=== PATIENT | female | born 1940 | race Caucasian/White ===

== ENCOUNTER → 2017-07-06 | Outpatient (CLI) | payer MEDICARE ==
--- NOTE | 2017-07-06 14:52 | BD ---
EXAMINATION TYPE: MG DEXA axial skeleton. DATE OF EXAM: 07/06/2017 COMPARISON: NONE CLINICAL HISTORY: Postmenopausal female. Height: 62 IN Weight: 182 LBS FRAX RISK QUESTIONS: Alcohol (3 or more units per day): NO Family History (Parent hip fracture): NO Glucocorticoids (More than 3mos): NO (Ex: prednisone, prednisolone, methylprednisolone, dexamethasone, and hydrocortisone). History of Fracture in Adulthood: NO Secondary Osteoporosis: 1. Type 1 Diabetes: NO 2. Hyperthyroidism: NO 3. Menopause before 45: NO 4. Malnutrition: NO 5. Chronic liver disease: NO Rheumatoid Arthritis: NO Current Tobacco Use: NO RISK FACTORS HISTORY OF: Active: YES Diet low in dairy products/other sources of calcium: YES Postmenopausal woman: AGE 53 MEDICATIONS: Thyroid Medications: YES Which medication: Levothyroxine How Lon+ YEARS Additional Medications: CALCIUM, VIT D, LEVOTHYROXINE, PLAVIX, LOSARTAN EXAM MEASUREMENTS: Bone mineral densitometry was performed using the [employer] System. Bone mineral density as measured about the Lumbar spine is: ----- L1-L4(G/cm2): 1.173 T Score Values are as follows: ----- L2: 0.6 ----- L3: 0.6 ----- L4: 0.4 ----- L1-L4: -0.1 Bone mineral density has: Increased 3.6% since study of: 02/14/2015 Bone mineral density about the R hip (g/cm2): 0.768 Bone mineral density about the L hip (g/cm2): 0.815 T Score values are as follows: -----R Neck: -1.9 -----L Neck: -1.6 -----R Total: -1.3 -----L Total: -0.6 Bone mineral density has: Decreased -2.0% since study of: 02/14/2015 IMPRESSION: Osteopenia (T Score between -2.5 and -1) as noted by T score values) both hips. There is slightly increased risk of fracture and the patient may be considered for treatment. Re-Screen 2-5 years. NOTE: T-SCORE=SD OF THE YOUNG ADULT MEAN.
--- NOTE | 2017-07-08 06:51 | MM ---
Reason for exam: screening (asymptomatic). Last mammogram was performed 2 years and 5 months ago. History: Patient is postmenopausal. Physical Findings: A clinical breast exam by your physician is recommended on an annual basis and results should be correlated with mammographic findings. MG 3D Screening Mammo W/Cad Bilateral CC and MLO view(s) were taken. Prior study comparison: February 14, 2015, bilateral MG screening mammo w CAD. January 11, 2013, bilateral digital screening mammo w/CAD. There are scattered fibroglandular densities. There is no discrete abnormality. ASSESSMENT: Negative, BI-RAD 1 RECOMMENDATION: Routine screening mammogram of both breasts in 1 year.
== END | disposition home or self-care (01) ==
LOC: RADMAMWWP 13:49
PROVIDERS: ATTEND Internal Medicine
DX: Z12.31 Encounter for screening mammogram for malignant neoplasm of breast (principal); M85.852 Other specified disorders of bone density and structure, left thigh; M85.851 Other specified disorders of bone density and structure, right thigh
CPT/HCPCS: 77080; 77063; G0202

== ENCOUNTER → 2019-07-07 | Outpatient (CLI) | payer MEDICARE ==
--- NOTE | 2019-07-08 14:12 | MM ---
Reason for exam: screening (asymptomatic). Last mammogram was performed 2 years ago. History: Patient is postmenopausal. Physical Findings: A clinical breast exam by your physician is recommended on an annual basis and results should be correlated with mammographic findings. MG 3D Screening Mammo W/Cad Bilateral CC and MLO view(s) were taken. Prior study comparison: July 06, 2017, bilateral MG 3d screening mammo w/cad. February 14, 2015, bilateral MG screening mammo w CAD. The breast tissue is heterogeneously dense. This may lower the sensitivity of mammography. No suspicious abnormality. No significant changes when compared with prior studies. ASSESSMENT: Negative, BI-RAD 1 RECOMMENDATION: Routine screening mammogram of both breasts in 1 year.
== END | disposition home or self-care (01) ==
LOC: RADMAMWWP 13:39
PROVIDERS: ATTEND Internal Medicine
DX: Z12.31 Encounter for screening mammogram for malignant neoplasm of breast (principal)
CPT/HCPCS: 77063; 77067

== ENCOUNTER → 2019-07-07 | Outpatient (CLI) | payer MEDICARE ==
--- NOTE | 2019-07-08 09:29 | BD ---
EXAMINATION TYPE: Axial Bone Density DATE OF EXAM: 07/07/2019 COMPARISON: 07.06.2017 CLINICAL HISTORY: Z 78.0 Height: 62 Weight: 174.3 FRAX RISK QUESTIONS: Alcohol (3 or more units per day): no Family History (Parent hip fracture): no Glucocorticoids (More than 3mos): no (Ex: prednisone, prednisolone, methylprednisolone, dexamethasone, and hydrocortisone). History of Fracture in Adulthood: no Secondary Osteoporosis: 1. Type 1 Diabetes: no 2. Hyperthyroidism: no 3. Menopause before 45: no 4. Malnutrition: no 5. Chronic liver disease: no Rheumatoid Arthritis: no Current Tobacco Use: no RISK FACTORS HISTORY OF: Surgery to Spine/Hip(right/left)/Wrist (right/left): no Family History of Osteoporosis: no Active: yes Diet low in dairy products/other sources of calcium: yes Postmenopausal woman: age 50 Lost more than 2 inches in height since high school: no Medications: blood thinner, blood pressure Thyroid Medications: thyroid How Lon years Additional History: EXAM MEASUREMENTS: Bone mineral densitometry was performed using the [employer] System. Bone mineral density as measured about the Lumbar spine is: ----- L1-L4(G/cm2): 1.269 T Score Values are as follows: ----- L2: 0.9 ----- L3: 1.3 ----- L4: 1.3 ----- L1-L4: 0.7 Bone mineral density has: increased 6.4 % since study of: 07.06.2017 Bone mineral density about the R hip (g/cm2): 0.816 Bone mineral density about the L hip (g/cm2): 0.812 T Score values are as follows: -----R Neck: -1.6 -----L Neck: -1.6 -----R Total: -1.1 -----L Total: -0.8 Bone mineral density has: decreased -0.1 % since study of: 07.06.2017 IMPRESSION: Osteopenia (T Score between -2.5 and -1). There is slightly increased risk of fracture and the patient may be considered for treatment. Re-Screen 2-5 years. NOTE: T-SCORE=SD OF THE YOUNG ADULT MEAN.
== END | disposition home or self-care (01) ==
LOC: RADBDWWP 13:42
PROVIDERS: ATTEND Internal Medicine
DX: M85.80 Other specified disorders of bone density and structure, unspecified site (principal)
CPT/HCPCS: 77080

== ENCOUNTER 2021-10-21 10:45 | Inpatient (IN) | payer MEDICARE ==
[2021-10-21] MEDS ORDERED: SODIUM CHLORIDE 0.9% 1,000 ML IV STA (11:09)
--- NOTE | 2021-10-21 11:12 | ED ---
General Adult HPI - General Chief complaint: Weakness Stated complaint: rt hand weakness Time Seen by Provider: 10/21/21 10:59 Source: patient, family, RN notes reviewed Mode of arrival: wheelchair Limitations: no limitations - History of Present Illness Initial comments: Patient is a pleasant 80-year-old female presenting to the emergency department with concern for small stroke. Patient does have history of similar symptoms previously. Patient was symptom-free when she went to bed at 11 PM. Patient woke at 4 AM with complete aphasia. This lasted approximately 2 hours then resolved. Patient states at 10:00 this morning, just over 1 hour ago she started with right arm weakness. Arm weakness has improved however not returning back to baseline. Speech remains normal at this time. Patient does not feel confused. - Related Data Home Medications Medication Instructions Recorded Confirmed Ascorbic Acid [Vitamin C] 1,000 mg PO HS 10/21/21 10/21/21 Aspirin EC [Ecotrin Low Dose] 81 mg PO HS 10/21/21 10/21/21 Ncbwqah-Orxl-Rzqa [id number] 1 tab PO Q4HR PRN 10/21/21 10/21/21 [Excedrin] Calcium/Magnesium/Zinc 1 tab PO HS 10/21/21 10/21/21 [Zbeygko-Snenwtzzu-Ryta Tablet] Candesartan Cilexetil 8 mg PO DAILY 10/21/21 10/21/21 Cholecalciferol [Vitamin D3 (25 25 mcg PO HS 10/21/21 10/21/21 Mcg = 1000 Iu)] Clopidogrel [Plavix] 75 mg PO HS 10/21/21 10/21/21 Levothyroxine Sodium [Synthroid] 50 mcg PO DAILY 10/21/21 10/21/21 Multivitamins, Thera [Multivitamin 1 tab PO HS 10/21/21 10/21/21 (formulary)] [place]-3 Fatty Acids/Fish Oil [Fish 1 cap PO HS 10/21/21 10/21/21 Oil 1,000 mg Softgel] Allergies Allergy/AdvReac Type Severity Reaction Status Date / Time No Known Allergies Allergy Verified 10/21/21 11:43 Review of Systems ROS Statement: Those systems with pertinent positive or pertinent negative responses have been documented in the HPI. ROS Other: All systems not noted in ROS Statement are negative. Constitutional: Denies: fever Eyes: Denies: eye pain ENT: Denies: ear pain Respiratory: Denies: cough Cardiovascular: Denies: chest pain Endocrine: Denies: fatigue Gastrointestinal: Denies: abdominal pain Genitourinary: Denies: dysuria Musculoskeletal: Denies: back pain Skin: Denies: rash Neurological: Reports: as per HPI, weakness. Denies: headache, confusion Past Medical History Past Medical History: CVA/TIA History of Any Multi-Drug Resistant Organisms: None Reported Additional Past Surgical History / Comment(s): left kidney donor Past Psychological History: No Psychological Hx Reported Smoking Status: Never smoker Past Alcohol Use History: None Reported Past Drug Use History: None Reported General Exam Limitations: no limitations General appearance: alert, in no apparent distress Head exam: Present: normocephalic Eye exam: Present: normal appearance, PERRL, EOMI. Absent: nystagmus ENT exam: Present: normal oropharynx Neck exam: Present: normal inspection Respiratory exam: Present: normal lung sounds bilaterally Cardiovascular Exam: Present: regular rate, normal rhythm GI/Abdominal exam: Present: soft. Absent: tenderness Extremities exam: Present: normal inspection, full ROM. Absent: tenderness Neurological exam: Present: alert, oriented X3, CN II-XII intact Expanded Neurological exam: Present: protecting the airway Patient oriented to: Present: person, place, time Speech: Present: fluid speech Cranial nerves: EOM's Intact: Normal, Facial Sensation: Normal Sensory exam: Upper Extremity Light Touch: Normal, Lower Extremity Light Touch: Normal Motor strength exam: RUE: 4, LUE: 5, RLE: 5, LLE: 5 Eye Response: (4) open spontaneously Motor Response: (6) obeys commands Verbal Response: (5) oriented Psychiatric exam: Present: normal affect, normal mood Skin exam: Present: normal color Course Vital Signs 10/21/21 10/21/21 10:48 11:15 Temperature 97.9 F 97.9 F Pulse Rate 77 80 Respiratory 18 18 Rate Blood Pressure 181/98 151/86 O2 Sat by Pulse 96 96 Oximetry - Reevaluation(s) Reevaluation #1: 10/21/21 11:22 Case was discussed with Dr. Jiménez who agrees patient is not a TPA candidate secondary to low stroke scale. It is felt that the risks outweigh the benefits. EKG Findings - EKG Comments: EKG Findings:: Normal sinus rhythm with rate of 84. DE 174. QRS 102. QT 360. QTC 425. Normal axis. Normal QRS. No acute ST change. Motion artifact is present. Medical Decision Making - Medical Decision Making Patient reevaluated and unchanged. Patient updated on results and plan. Case was discussed with Dr. rosemary carlos, who will admit covering Dr. Salter. Neurology will be placed on consult. - Lab Data Result diagrams: 10/21/21 11:10/21/21 11: Lab Results 10/21/21 10/21/21 10/21/21 Range/Units 11:29 11: 11:29 WBC 7.8 (3.8-10.6) k/uL RBC 4.13 (3.80-5.40) m/uL Hgb 12.8 (11.4-16.0) gm/dL Hct 39.6 (34.0-46.0) % MCV 95.7 (80.0-100.0) fL MCH 31.0 (25.0-35.0) pg MCHC 32.3 (31.0-37.0) g/dL RDW 12.8 (11.5-15.5) % Plt Count 231 (150-450) k/uL MPV 8.1 Neutrophils % 71 % Lymphocytes % 17 % Monocytes % 7 % Eosinophils % 3 % Basophils % 1 % Neutrophils # 5.5 (1.3-7.7) k/uL Lymphocytes # 1.3 (1.0-4.8) k/uL Monocytes # 0.5 (0-1.0) k/uL Eosinophils # 0.2 (0-0.7) k/uL Basophils # 0.1 (0-0.2) k/uL Sodium 137 (137-145) mmol/L Potassium 4.2 (3.5-5.1) mmol/L Chloride 107 (98-107) mmol/L Carbon Dioxide 23 (22-30) mmol/L Anion Gap 7 mmol/L BUN 20 H (7-17) mg/dL Creatinine 0.94 (0.52-1.04) mg/dL Est GFR (CKD-EPI)AfAm 66 (>60 ml/min/1.73 sqM) Est GFR (CKD-EPI)NonAf 58 (>60 ml/min/1.73 sqM) Glucose 100 H (74-99) mg/dL Calcium 9.7 (8.4-10.2) mg/dL Total Bilirubin 0.3 (0.2-1.3) mg/dL AST 22 (14-36) U/L ALT 12 (4-34) U/L Alkaline Phosphatase 67 (38-126) U/L Troponin I <0.012 (0.000-0.034) ng/mL Total Protein 7.0 (6.3-8.2) g/dL Albumin 3.7 (3.5-5.0) g/dL - Radiology Data Radiology results: report reviewed (Computed tomography scan of brain shows atrophy without acute process. CT angiogram reveals no significant abnormality.), image reviewed (Chest x-ray shows cardiomegaly.) Disposition Clinical Impression: CVA (cerebral vascular accident) Disposition: ADMITTED IP TO THIS HOSP Is patient prescribed a controlled substance at d/c from ED?: No Referrals: Raudel Marrero MD [Primary Care Provider] - 1-2 days Decision Time: 12:34
--- NOTE | 2021-10-21 11:33 | CT ---
EXAMINATION TYPE: CT brain wo con for TPA DATE OF EXAM: 10/21/2021 COMPARISON: None HISTORY: Right hand weakness, slurred speech. CT DLP: 1075.[address] of the brain was performed. The ventricles, basal cisterns and sulci overlying the cerebral convexities demonstrate moderate enla rgement. There is no evidence for intracranial hemorrhage or sulcal effacement. There is decreased attenuation about the periventricular white matter and deep white matter of both c erebral hemispheres, compatible with chronic small vessel ischemia. Differential diagnosis does inclu de demyelination. No mass effects are seen.No midline shift. Osseous calvarium is intact. If symptoms persist consider MRI. IMPRESSION: 1. Age related atrophic and chronic small vessel ischemic change without acute intracranial process s een at this time.
[2021-10-21 11:42] LABS: Basophils # (A) 0.1 k/uL (0-0.2); Basophils % (A) 1 %; Eosinophils # (A) 0.2 k/uL (0-0.7); Eosinophils % (A) 3 %; HCT 39.6 % (34.0-46.0); HGB 12.8 gm/dL (11.4-16.0); Lymphocytes # (A) 1.3 k/uL (1.0-4.8); Lymphocytes % (A) 17 %; MCHC 32.3 g/dL (31.0-37.0); MCV 95.7 fL (80.0-100.0); Mean Platelet Volume 8.1; Monocytes # (A) 0.5 k/uL (0-1.0); Monocytes % (A) 7 %; Neutrophils # (A) 5.5 k/uL (1.3-7.7); Neutrophils % (A) 71 %; Platelet Count 231 k/uL (150-450); RBC 4.13 m/uL (3.80-5.40); RDW 12.8 % (11.5-15.5); WBC 7.8 k/uL (3.8-10.6)
--- NOTE | 2021-10-21 11:49 | CT ---
EXAMINATION TYPE: CT angio head neck DATE OF EXAM: 10/21/2021 COMPARISON: None HISTORY: Right hand weakness, slurred speech. CONTRAST: Performed with IV Contrast, patient injected with 65 mL of Isovue 370. Combination Contrast CTA cervical carotids and [place] CTA cervical carotids with 3-D recons truction Contrast CTA of the cervical carotids was performed 3-D reconstruction imaging obtained at a separate workstation. Right carotid system: Mild plaque is seen of the right common carotid artery. There is mild plaque a lso noted at the carotid bulb and proximal ICA. No significant diameter reduction. ECA is patent. Right vertebral artery appears unremarkable. Left carotid system: Mild plaque is seen of the left common carotid artery. There is mild plaque als o noted at the carotid bulb and proximal ICA. No significant diameter reduction. ECA is patent. Lef t vertebral artery appears unremarkable. IMPRESSION: 1. No significant diameter reduction to account for the patient's symptoms. CTA [place] with 3-D reconstruction Contrast CTA of the [place] was performed 3-D reconstruction imaging obtained at a separate workstation. Vertebrobasilar system as well as intracranial portions of the internal carotid arteries and their ma [place] tributaries are patent. I do not see evidence for sizable aneurysm or vascular malformation. Pl ease note MRI provides greater sensitivity and specificity. Visualized brain appears grossly unremar kable. IMPRESSION: 1. No significant abnormality. NASCET criteria was used in interpretation of this exam?
--- NOTE | 2021-10-21 11:54 | XR ---
EXAMINATION TYPE: XR chest 2V DATE OF EXAM: 10/21/2021 COMPARISON: NONE HISTORY: Shortness of breath TECHNIQUE: Frontal and lateral views of the chest are obtained. FINDINGS: Scattered senescent parenchymal changes noted. Hyperinflation compatible with COPD. No evidence for infiltrate. No evidence for atelectasis. There is cardiomegaly without evidence for overt failure at this time. Mediastinal structures are stable and grossly unremarkable. No evidence for hilar prominence. Degenerative changes dorsal spine. IMPRESSION: 1. There is cardiomegaly without evidence for overt failure at this time.
[2021-10-21 11:57] LABS: Albumin 3.7 g/dL (3.5-5.0); Calcium 9.7 mg/dL (8.4-10.2); Potassium 4.2 mmol/L (3.5-5.1); Total Bilirubin 0.3 mg/dL (0.2-1.3)
[2021-10-21 12:09] LABS: INR 0.9 (<1.2); Prothrombin Time 9.9 sec (9.0-12.0)
[2021-10-21] MEDS ORDERED: ASPIRIN 325 MG TAB PO STA (12:34)
[2021-10-21 12:42] LABS: Partial Thromboplastin Time 20.4 sec (22.0-30.0)
[2021-10-21] MEDS: SODIUM CHLORIDE 0.9% 1,000 ML IV SCH ×2 (12:45→17:54)
--- NOTE | 2021-10-21 16:06 | P.HPIM ---
<Don Brady - Last Filed: 10/21/21 17:48> History of Present Illness H&P Date: 10/21/21 History of Presenting Illness: Patient is a very pleasant 80-year-old female with a past medical history of hypertension, hyperlipidemia, previous TIAs on Plavix and aspirin, and hypothyroidism. She presented to the emergency department with a chief complaint of aphasia and right arm weakness. Patient reports she went to bed shortly after 11 PM last night and awoke at 4 AM with complete aphasia. She reports calling her son and stating this lasted approximately 2 hours before completely resolving. Patient states couple hours later she began to feel right arm weakness and numbness so she came to the emergency department. In the emergency department patient underwent full evaluation. CBC, CMP and troponin were all unremarkable. Covid PCR was negative. CT brain without contrast negative for acute intercranial process revealing age-related atrophic and chronic small vessel ischemic changes. CTA head and neck reported negative for significant abnormalities. EKG showing normal sinus rhythm at 84 bpm. Patient admitted under our services with consultation to neurology. Initial NIH score of 1. Patient reports complete resolution of aphasia and continues to have numbness/weakness in her right index finger and right thumb only. She denies having any headache, lightheadedness, dizziness, chest pain, palpitations, shortness of breath, dyspnea with exertion, recent illnesses, or fevers. Review of systems: Pertinent positives and negatives as discussed in HPI, a complete review of systems was performed and all other systems are negative. Physical exam: Vital signs reviewed and stable. General: Nontoxic, no distress and appears stated age. Derm: Skin warm and dry, normal coloration for ethnicity. Head: Atraumatic, normocephalic and symmetric. Eyes: EOMs intact, no lid lag, and anicteric sclera Mouth: no lip lesions, mucus membranes moist Cardiovascular: regular rate and rhythm with normal S1S2, no murmur, positive posterior tibial pulses bilaterally, and cap refill < 2 seconds. Lungs: Respirations even, regular, and unlabored on room air. Lungs CTA bilaterally, no rhonchi, no rales, no wheezing, and no accessory muscle usage. Abdominal: soft, nontender to palpation, no guarding, no appreciable organomegaly Ext: ROM intact. No gross muscle atrophy, 1+ pitting bilateral lower extremity edema, no contractures Neuro: Speech clear, face symmetrical and CN II-XII grossly intact. Decreased sensation right index finger and right thumb. Movement intact. Strength equal. Psych: Alert and oriented to person, place, time, and situation. Appropriate and pleasant affect. Assessment and Plan of Care: TIA Aphasia Right upper extremity weakness Initial NIH score of 1 Neuro checks every 4 hours Echocardiogram to be completed MRI head and neck to be completed Neurology consult PT/OT consult Telemetry monitoring Continuation of dual antiplatelet therapy with aspirin and Plavix Lipid profile with a.m. labs Hypertension Monitor vital signs and continue daily medication regimen with losartan. Hypothyroidism We will obtain a TSH with free T4 and continue daily medication regimen with levothyroxine The patient is admitted with an anticipated greater than 2 midnight stay for evaluation of TIA. Surrogate decision-maker: In the event patient is unable to make her own decisions, she requests that her son's make her decisions. CODE STATUS: Full code DVT prophylaxis: Lovenox Discussed with: Patient, RN, and patient's son Anticipated discharge date: 1-[address]: Home A total of 45 minutes was spent on the care of this complex patient more than 50% of the time was spent in counseling and care coordination. Past Medical History Past Medical History: CVA/TIA, GERD/Reflux, Hypertension, Pneumonia, Syncope, Thyroid Disorder Additional Past Medical History / Comment(s): TIA, bronchitis, seasonal allergies, hypothyroid, back pain History of Any Multi-Drug Resistant Organisms: None Reported Additional Past Surgical History / Comment(s): left kidney donor, FAHAD, colonoscopy, bilateral cataract removals Past Anesthesia/Blood Transfusion Reactions: No Reported Reaction, Motion Sickness Smoking Status: Never smoker - Past Family History Father Additional Family Medical History / Comment(s): "heart issues" Mother Family Medical History: Respiratory Disorder Additional Family Medical History / Comment(s): Upper respiratory disorder. Medications and Allergies Home Medications Medication Instructions Recorded Confirmed Type Ascorbic Acid [Vitamin C] 1,000 mg PO HS 10/21/21 10/21/21 History Aspirin EC [Ecotrin Low Dose] 81 mg PO HS 10/21/21 10/21/21 History Oipfaiu-Cjhr-Zqiz [id number] 1 tab PO Q4HR PRN 10/21/21 10/21/21 History [Excedrin] Calcium/Magnesium/Zinc 1 tab PO HS 10/21/21 10/21/21 History [Sglduvt-Empjmoczv-Wgbh Tablet] Candesartan Cilexetil 8 mg PO DAILY 10/21/21 10/21/21 History Cholecalciferol [Vitamin D3 (25 25 mcg PO HS 10/21/21 10/21/21 History Mcg = 1000 Iu)] Clopidogrel [Plavix] 75 mg PO HS 10/21/21 10/21/21 History Levothyroxine Sodium [Synthroid] 50 mcg PO DAILY 10/21/21 10/21/21 History Multivitamins, Thera [Multivitamin 1 tab PO HS 10/21/21 10/21/21 History (formulary)] [place]-3 Fatty Acids/Fish Oil [Fish 1 cap PO HS 10/21/21 10/21/21 History Oil 1,000 mg Softgel] Allergies Allergy/AdvReac Type Severity Reaction Status Date / Time No Known Allergies Allergy Verified 10/21/21 11:43 Physical Exam Vitals: Vital Signs Temp Pulse Pulse Resp BP BP Pulse Ox 10/21/21 15:43 97.3 F L 78 150/86 97 10/21/21 14:36 72 18 137/87 96 10/21/21 13:36 71 18 150/82 96 10/21/21 12:36 75 18 150/82 96 10/21/21 11:15 97.9 F 80 18 151/86 96 10/21/21 10:48 97.9 F 77 18 181/98 96 Intake and Output 10/21/21 10/21/21 10/21/21 06:59 14:59 22:59 Intake Total 900 Balance 900 Intake: Intake, IV Titration 900 Amount Sodium Chloride 0.9% 1, 900 000 ml @ 75 mls/hr IV . [id number] STA Rx#:[id number] Other: Voiding Method Toilet Weight 79.379 kg Results CBC & Chem 7: 10/21/21 11:29 10/21/21 11:29 Labs: Abnormal Lab Results - Last 24 Hours (Table) 10/21/21 10/21/21 Range/Units 11:29 11:29 APTT 20.4 L (22.0-30.0) sec BUN 20 H (7-17) mg/dL Glucose 100 H (74-99) mg/dL Thrombosis Risk Factor Assmnt - Choose All That Apply Any of the Below Risk Factors Present?: Yes Each Factor Represents 1 point: Obesity (BMI >25) Other Risk Factors: Yes Each Risk Factor Represents 3 Points: Age 75 years or older Other congenital or acquired thrombophilia - If yes, enter type in comment: No Each Risk Factor Represents 5 Points: Stroke (< 1 month) Thrombosis Risk Factor Assessment Total Risk Factor Score: 9 Thrombosis Risk Factor Assessment Level: High Risk <Krista Woodard - Last Filed: 10/21/21 18:36> History of Present Illness Patient seen and examined independently. Patient was also seen by Don Brady NP and case was discussed. I am in agreement with subjective, physical exam, assessment and plan as written above and amended below. Still with weakness in her right hand, speech has returned to normal. She believes this is her third or fourth TIA. She has been taking her medications as prescribed. She is no longer following with neurology. She is a retired speech therapist. General: non toxic, no distress, appears at stated age Derm: warm, dry Head: atraumatic, normocephalic, symmetric Eyes: EOMI, no lid lag, anicteric sclera Mouth: no lip lesion, mucus membranes moist Cardiovascular: S1S2 reg, no murmur, positive posterior tibial pulse bilateral, Lungs: CTA bilateral, no rhonchi, no rales , no accessory muscle use Abdominal: soft, nontender to palpation, no guarding, no appreciable organomegaly Ext: no gross muscle atrophy, no edema, no contractures Neuro: Pupils equal round reactive to light, extraocular motion intact, accommodation intact, light touch intact bilateral face/upper extremities/lower extremities, muscle strength 5 out of 5 in bilateral lower extremities. No lid lag, no tongue deviation coming of uvula elevation symmetric, patient with weakness of first and second intrinsic hand muscles on the right, intact on the left. Psych: Alert, oriented, appropriate affect Physical Exam Osteopathic Statement: *. No significant issues noted on an osteopathic structural exam other than those noted in the History and Physical/Consult. Vitals: Vital Signs Temp Pulse Pulse Resp BP BP Pulse Ox 10/21/21 15:43 97.3 F L 78 150/86 97 10/21/21 14:36 72 18 137/87 96 10/21/21 13:36 71 18 150/82 96 10/21/21 12:36 75 18 150/82 96 10/21/21 11:15 97.9 F 80 18 151/86 96 10/21/21 10:48 97.9 F 77 18 181/98 96 Intake and Output 10/21/21 10/21/21 10/21/21 06:59 14:59 22:59 Intake Total 900 120 Balance 900 120 Intake: Intake, IV Titration 900 Amount Sodium Chloride 0.9% 1, 900 000 ml @ 75 mls/hr IV . [id number] STA Rx#:[id number] Oral 120 Other: Voiding Method Toilet Weight 79.379 kg Results CBC & Chem 7: 10/21/21 11:29 10/21/21 11:29 Labs: Abnormal Lab Results - Last 24 Hours (Table) 10/21/21 10/21/21 Range/Units 11:29 11:29 APTT 20.4 L (22.0-30.0) sec BUN 20 H (7-17) mg/dL Glucose 100 H (74-99) mg/dL
[2021-10-21] MEDS: ASCORBIC ACID 500 MG TAB PO SCH (17:51)
[2021-10-21] MEDS: ASPIRIN 81 MG PO SCH (17:51)
[2021-10-21] MEDS: CHOLECALCIFEROL 25 MCG (1000 IU) TABLET PO SCH (17:52)
[2021-10-21] MEDS: MULTIVITAMINS, THERA 1 EACH TAB PO SCH (17:52)
[2021-10-21] MEDS ORDERED: NON FORMULARY DRUG (Calcium/Magnesium/Zinc [Calcium-Magnesium-Zinc Tablet] 1 EACH Tablet) PO SCH (21:00)
[2021-10-21] MEDS ORDERED: NON FORMULARY DRUG (Omega-3 Fatty Acids/Fish Oil [Fish Oil 1,000 Mg Softgel] 1 EACH Capsul PO SCH (21:00)
[2021-10-21] MEDS ORDERED: CLOPIDOGREL 75 MG TAB PO SCH (21:00)
[2021-10-22] MEDS: LEVOTHYROXINE 50 MCG TAB PO SCH (06:25)
[2021-10-22] MEDS: ACETAMINOPHEN TAB 325 MG TAB PO PRN ×2 (06:25→16:41)
[2021-10-22 06:30] LABS: Glucose,Whole Blood 80 mg/dL (75-99)
[2021-10-22] MEDS: ENOXAPARIN 40 MG/0.4 ML SYRINGE SQ SCH (08:47)
[2021-10-22] MEDS: LOSARTAN 50 MG TAB PO SCH (08:48)
[2021-10-22] MEDS ORDERED: ASPIRIN 325 MG TAB PO SCH (09:00)
[2021-10-22 09:43] LABS: HCT 38.9 % (34.0-46.0); HGB 12.6 gm/dL (11.4-16.0); MCHC 32.4 g/dL (31.0-37.0); MCV 95.8 fL (80.0-100.0); Mean Platelet Volume 8.2; Platelet Count 234 k/uL (150-450); RBC 4.06 m/uL (3.80-5.40); WBC 7.9 k/uL (3.8-10.6)
[2021-10-22 09:56] LABS: ALT 13 U/L (4-34); AST 22 U/L (14-36); African American GFR (CKD) 65 (>60 ml/min/1.73 sqM); Albumin 3.5 g/dL (3.5-5.0); Alkaline Phosphatase 60 U/L (38-126); Anion Gap 7 mmol/L; Blood Urea Nitrogen 15 mg/dL (7-17); Calcium 9.3 mg/dL (8.4-10.2); Carbon Dioxide 25 mmol/L (22-30); Chloride 106 mmol/L (98-107); Glucose 125 mg/dL (74-99); Magnesium 1.9 mg/dL (1.6-2.3); Non-African American GFR(CKD) 56 (>60 ml/min/1.73 sqM); Potassium 4.1 mmol/L (3.5-5.1); Sodium 138 mmol/L (137-145); Total Bilirubin 0.5 mg/dL (0.2-1.3); Total Protein 6.8 g/dL (6.3-8.2)
[2021-10-22 11:16] LABS: Glucose,Whole Blood 103 mg/dL (75-99)
--- NOTE | 2021-10-22 11:34 | ECHOF ---
Referral Reason:Thrombus MEASUREMENTS -------- HEIGHT: 157.5 cm WEIGHT: 80.3 kg BP: 144/70 IVSd: 1.1 cm (0.6 - 1.1) LVIDd: 3.2 cm (3.9 - 5.3) LVPWd: 1.0 cm (0.6 - 1.1) IVSs: 1.5 cm LVIDs: 1.7 cm LVPWs: 1.3 cm MV E Meng: 0.60 m/s MV DecT: 186 ms MV A Meng: 0.85 m/s MV E/A Ratio: 0.71 RAP: 5.00 mmHg RVSP: 8.99 mmHg FINDINGS -------- This was a technically difficult study with suboptimal views. The left ventricular size is normal. Left ventricular wall thickness is normal. Overall left vent ricular systolic function is normal with, an EF between 55 - 60 %. The RV was not well visualized. The left atrium was not well visualized. The right atrium was not well visualized. Lumason used The aortic valve was not well visualized. There is trace mitral regurgitation. Trace tricuspid regurgitation present. Right ventricular systolic pressure is normal at < 35 mmHg. The pulmonic valve was not well visualized. The aortic root size is normal. IVC Not well visulized. There is no pericardial effusion. CONCLUSIONS -------- 1. The left ventricular size is normal. 2. Left ventricular wall thickness is normal. 3. Overall left ventricular systolic function is normal with, an EF between 55 - 60 %. 4. There is trace mitral regurgitation. 5. Trace tricuspid regurgitation present. 6. There is no pericardial effusion. TAX AUDIT MANAGER: Marycruz Rivera [facility]
--- NOTE | 2021-10-22 13:30 | P.CNNES ---
History of Present Illness Consult date: 10/22/21 Requesting physician: Kiran Anderson Reason for Consult: CVA History of Present Illness: Patient is a 80-year-old right-handed female came to the hospital yesterday at 10:45 AM for possible stroke/TIA. Patient states that night before the last, she went to bed around 10-11 p.m. and was feeling fine. She woke up at 4 AM and wanted to go to the bathroom, she when she felt strange. She tried talking out loud to herself, as she lives by herself and felt her speech was slurred. She then went back to the bed, and took a nap. When she got up at 6 AM, and noticed her speech was improved, but right hand was weak. There was no facial droop, and legs were strong, still able to walk at baseline. As his symptoms did not improve, she decided to come to the ER. Vital signs arrival blood pressure 181/98, pulse rate 77, temperature 97.9. CT head showed age-related atrophy and chronic small vessel ischemic changes without acute intracranial process. CTA of head and neck showed no significant abnormality. Chest x-ray showed cardiomegaly without evidence for overt CHF at this time. EKG shows normal sinus rhythm, nonspecific ST abnormality. Patient's home medications includes aspirin 81 mg, vitamin D, Plavix 75 mg, Candesartan, multivitamins, levothyroxine. Patient states that she does take her dual antiplatelet medications very regularly, does not miss a dose. Patient states that at this time her speech is back to normal. Her right hand is getting stronger, but still slightly weak mainly for the index finger and the thumb. Denies any weakness of any other part of the body or legs. Denies any visual symptoms. Patient states she had history of a TIA about 6 years ago, which affected her l eft side of the face and left arm weakness, that resolved after a short while. She had another event about 18 years ago, which I do not believe was a vascular event, as while driving to [place], she felt "buzzing in her head" and all of a sudden she felt "losing it". Her took over the steering wheel and pulled over. After taking some rest, she was fine and was still able to drive all the way to [place]. When she came back couple months later to [place], she was checked out by her primary physician, in no obvious cause was identified. Patient has history of hypertension denies diabetes. She never smoked. Review of Systems As mentioned in HPI. All other 14 point review of systems reviewed and unremarkable. Patient denies any chest pain shortness of breath wheezing or cough. No abdominal pain. Past Medical History Past Medical History: CVA/TIA, GERD/Reflux, Hypertension, Pneumonia, Syncope, Thyroid Disorder Additional Past Medical History / Comment(s): TIA, bronchitis, seasonal allergies, hypothyroid, back pain History of Any Multi-Drug Resistant Organisms: None Reported Additional Past Surgical History / Comment(s): left kidney donor, FAHAD, colonoscopy, bilateral cataract removals Past Anesthesia/Blood Transfusion Reactions: No Reported Reaction, Motion Sickness Smoking Status: Never smoker - Past Family History Father Additional Family Medical History / Comment(s): "heart issues" Mother Family Medical History: Respiratory Disorder Additional Family Medical History / Comment(s): Upper respiratory disorder. Medications and Allergies Home Medications Medication Instructions Recorded Confirmed Type Ascorbic Acid [Vitamin C] 1,000 mg PO HS 10/21/21 10/21/21 History Aspirin EC [Ecotrin Low Dose] 81 mg PO HS 10/21/21 10/21/21 History Bvnfkwe-Tzrm-Eyou [id number] 1 tab PO Q4HR PRN 10/21/21 10/21/21 History [Excedrin] Calcium/Magnesium/Zinc 1 tab PO HS 10/21/21 10/21/21 History [Cnehfcx-Bhmjsjgcq-Iuzb Tablet] Candesartan Cilexetil 8 mg PO DAILY 10/21/21 10/21/21 History Cholecalciferol [Vitamin D3 (25 25 mcg PO HS 10/21/21 10/21/21 History Mcg = 1000 Iu)] Clopidogrel [Plavix] 75 mg PO HS 10/21/21 10/21/21 History Levothyroxine Sodium [Synthroid] 50 mcg PO DAILY 10/21/21 10/21/21 History Multivitamins, Thera [Multivitamin 1 tab PO HS 10/21/21 10/21/21 History (formulary)] [facility]-3 Fatty Acids/Fish Oil [Fish 1 cap PO HS 10/21/21 10/21/21 History Oil 1,000 mg Softgel] Allergies Allergy/AdvReac Type Severity Reaction Status Date / Time No Known Allergies Allergy Verified 10/21/21 11:43 Physical Examination - Vital Signs Vital Signs: Vital Signs Temp Pulse Pulse Resp BP BP Pulse Ox 10/22/21 11:35 98.3 F 75 16 136/83 95 10/22/21 08:00 97.7 F 71 18 145/74 97 10/22/21 07:36 97.7 F 71 18 145/74 97 10/22/21 03:46 97.8 F 78 16 144/70 94 L 10/21/21 23:05 79 16 119/73 97 10/21/21 21:20 98 F 72 16 127/79 98 10/21/21 15:43 97.3 F L 78 150/86 97 10/21/21 14:36 72 18 137/87 96 10/21/21 13:36 71 18 150/82 96 10/21/21 12:36 75 18 150/82 96 Intake and Output 10/21/21 10/22/21 10/22/21 22:59 06:59 14:59 Intake Total 120 Balance 120 Intake: Oral 120 Other: Voiding Method Toilet Toilet Toilet # Voids 1 Weight 80.3 kg Patient is an elderly female, in no acute distress. Patient is alert awake oriented to time place and person. Speech and language functions are normal. Attention, concentration and fund of knowledge is adequate. Patient can name and repeat very well, no aphasia or dysarthria. On cranial examination, pupils are round and reacting to light, visual benjamin are full on confrontation, extraocular muscles are intact with no nystagmus. Face is symmetric, tongue protrudes to the midline. Palatal elevation and sensation normal, hearing is moderately decreased and shoulder shrug normal, facial sensation normal. On muscle strength testing, there is mild right pronator drift and the strength is normal in arms and legs distally and proximally, except right interossei which is 4+5-, but the underground repairer is equal bilaterally. Her deltoid, biceps and triceps are normal bilaterally. Deep tendon reflexes are symmetric, 1+ and plantars downgoing. Sensory to touch is equal with no neglect on double simultaneous stimulation. Cerebellar function showed mild ataxia for dsephk-sz-sxrv testing only on the right. Tone and bulk of muscles normal. Gait deferred. On general examination, there is no carotid bruit or murmur, S1-S2 audible. Abdomen is soft nontender. Chest is clear. Peripheral pulses are present. No edema. Results - Laboratory Findings CBC and BMP: 10/22/21 09:25 10/22/21 09:25 Abnormal Lab Findings: Abnormal Labs 10/21/21 10/21/21 10/22/21 11:29 11:29 09:25 APTT 20.4 L BUN 20 H Glucose 100 H 125 H POC Glucose (mg/dL) 10/22/21 11:13 APTT BUN Glucose POC Glucose (mg/dL) 103 H Assessment and Plan Assessment: * Probable acute CVA manifesting with right hand weakness. Patient's initial symptoms was slurred speech, which has resolved, but then had right hand weakness, which has persisted. Her NIH stroke scale is 1. Patient was not a candidate for TPA, as she came outside the window. No large vessel occlusion noted on CTA of head and neck. * Hypertension * Previous history of TIA Plan: * MRI of the brain to evaluate for an acute stroke. * Patient is also undergoing MRA of head and neck. * 2-D echo showed normal left-ventricular size. Normal left radicular wall thickness EF is between 55-60%. Trace MR. * CTA of head and neck are normal. No significant stenosis, aneurysm or occlusion. * Patient has failed aspirin 81 mg and Plavix regimen. We will stop Plavix and start her on Brilinta 90 mg twice a day. * Telemetry monitoring so far showing sinus rhythm, in 60 to 70s, some PVCs. No other arrhythmia. * Fasting a.m. lipid panel, hemoglobin A1c * PT OT. * Discussed with patient's son in detail.
--- NOTE | 2021-10-22 14:52 | P.PN ---
<Don Brady - Last Filed: 10/22/21 14:44> Subjective Progress Note Date: 10/22/21 Hospital Course: Patient is a very pleasant 80-year-old female with a past medical history of h ypertension, hyperlipidemia, previous TIAs on Plavix and aspirin, and hypothyroidism. She presented to the emergency department with a chief complaint of aphasia and right arm weakness. Patient reports she went to bed shortly after 11 PM last night and awoke at 4 AM with complete aphasia. She rep orts calling her son and stating this lasted approximately 2 hours before completely resolving. Patient states couple hours later she began to feel right arm weakness and numbness so she came to the emergency department. In the emergency department patient underwent full evaluation. CBC, CMP and troponin were all unremarkable. Covid PCR was negative. CT brain without contrast negative for acute intercranial process revealing age-related atrophic and chronic small vessel ischemic changes. CTA head and neck reported negative for significant abnormalities. EKG showing normal sinus rhythm at 84 bpm. Patient admitted under our services with consultation to neurology. Initial NIH score of 1. Patient reports complete resolution of aphasia and continues to have numbness/weakness in her right index finger and right thumb only. Echocardiogram completed revealing a normal EF between 55 and 60% with suboptimal views of cardiac valves with reports stating not well visualized. Patient scheduled for MRI later this afternoon. Physical exam: Patient seen and fully evaluated at bedside this morning. Patient is doing well. She continues to have complete resolution of previously reported aphasia but continues to have numbness and weakness and right index finger and right thumb. Patient continues to deny having any headache, lightheadedness, dizziness, chest pain, palpitations, or shortness of breath. Morning labs reviewed. CBC, CMP, and TSH all unremarkable. Patient to remain on aspirin and Brilinta at this time pending results of MRI and further recommendations from neurology. Vital signs reviewed and stable. General: Nontoxic, no distress and appears stated age. Derm: Skin warm and dry, normal coloration for ethnicity. Head: Atraumatic, normocephalic and symmetric. Eyes: EOMs intact, no lid lag, and anicteric sclera Mouth: no lip lesions, mucus membranes moist Cardiovascular: regular rate and rhythm with normal S1S2, no murmur, positive posterior tibial pulses bilaterally, and cap refill < 2 seconds. Lungs: Respirations even, regular, and unlabored on room air. Lungs CTA bilaterally, no rhonchi, no rales, no wheezing, and no accessory muscle usage. Abdominal: soft, nontender to palpation, no guarding, no appreciable organomegaly Ext: ROM intact. No gross muscle atrophy, 1+ pitting bilateral lower extremity edema, no contractures Neuro: Speech clear, face symmetrical and CN II-XII grossly intact. Decreased sensation right index finger and right thumb. Movement intact. Strength equal. Psych: Alert and oriented to person, place, time, and situation. Appropriate and pleasant affect. Assessment and Plan of Care: CVA Aphasia, resolved Right upper extremity weakness, continues Initial NIH score of 1 Neuro checks every 4 hours Echocardiogram completed revealing of 55-60% EF MRI head and neck to be completed this afternoon Neurology following PT/OT consult Telemetry monitoring Continuation of dual antiplatelet therapy with aspirin and Brilinta Lipid profile with a.m. labs Hypertension Monitor vital signs and continue daily medication regimen with losartan. Hypothyroidism We will obtain a TSH with free T4 and continue daily medication regimen with levothyroxine CODE STATUS: Full code DVT prophylaxis: Lovenox Discussed with: Patient, RN, and patient's son Anticipated discharge date: 1-[address]: Home A total of 45 minutes was spent on the care of this complex patient more than 50% of the time was spent in counseling and care coordination. Objective - Vital Signs Vital signs: Vital Signs Temp 97.7 F 10/22/21 08:00 Pulse 71 10/22/21 08:00 Resp 18 10/22/21 08:00 BP 145/74 10/22/21 08:00 Pulse Ox 97 10/22/21 08:00 Intake & Output 10/21/21 10/22/21 10/22/21 18:59 06:59 18:59 Intake Total 1020 Balance 1020 Weight 79.379 kg 80.3 kg Intake: Intake, IV Titration 900 Amount Sodium Chloride 0.9% 1, 900 000 ml @ 75 mls/hr IV . [id number] STA Rx#:[id number] Oral 120 Other: Voiding Method Toilet Toilet Toilet # Voids 1 - Labs CBC & Chem 7: 10/22/21 09:25 10/22/21 09:25 Labs: Abnormal Lab Results - Last 24 Hours (Table) 10/21/21 10/21/2121 Range/Units 11:29 11:29 09:25 APTT 20.4 L (22.0-30.0) sec BUN 20 H (7-17) mg/dL Glucose 100 H 125 H (74-99) mg/dL POC Glucose (mg/dL) (75-99) mg/dL 10/22/21 Range/Units 11:13 APTT (22.0-30.0) sec BUN (7-17) mg/dL Glucose (74-99) mg/dL POC Glucose (mg/dL) 103 H (75-99) mg/dL <Krista Woodard - Last Filed: 10/22/21 17:46> Subjective Don Brady NP rendered care for this patient independently, reviewed the fi ndings and plan as documented in the note above. I did not physically speak with or examine the patient on this date. Objective - Vital Signs Vital signs: Vital Signs Temp 97.8 F 10/22/21 16:00 Pulse 76 10/22/21 16:00 Resp 16 10/22/21 16:00 BP 137/91 10/22/21 16:00 Pulse Ox 97 10/22/21 16:00 Intake & Output 10/21/21 10/22/21 10/22/21 18:59 06:59 18:59 Intake Total 1020 240 Output Total 300 Balance 1020 -60 Weight 79.379 kg 80.3 kg Intake: Intake, IV Titration 900 Amount Sodium Chloride 0.9% 1, 900 000 ml @ 75 mls/hr IV . [id number] STA Rx#:[id number] Oral 120 240 Output: Urine 300 Other: Voiding Method Toilet Toilet Toilet # Voids 1 - Labs CBC & Chem 7: 10/22/21 09:25 10/22/21 09:25 Labs: Abnormal Lab Results - Last 24 Hours (Table) 10/22/21 10/22/21 10/22/21 Range/Units 09:25 11:13 16:40 Glucose 125 H (74-99) mg/dL POC Glucose (mg/dL) 103 H 108 H (75-99) mg/dL
--- NOTE | 2021-10-22 15:59 | MR ---
EXAMINATION TYPE: MR brain wo con DATE OF EXAM: 10/22/2021 3:51 PM COMPARISON: NONE HISTORY: Acute CVA FINDINGS: The ventricles, basal cisterns and sulci overlying the cerebral convexities are moderately enlarged. Remote insult left cerebellum. There is evidence of mild periventricular white matter ischemic demyelination. Remote deep white matter insults are also noted. Subtle area of subcortical increased signal on diffusion-weighted imaging involving the high left fro ntal cortex. No additional areas of abnormal increased signal noted. There is no evidence for midline shift or mass effect. Acute intracranial hemorrhage or extra-axial collection is not evident. The paranasal sinuses and mastoid air cells are well-aerated. IMPRESSION: Subtle area of subcortical increased signal on diffusion-weighted imaging involving the high left fro ntal cortex. No additional areas of abnormal increased signal noted.
[2021-10-22 16:41] LABS: Glucose,Whole Blood 108 mg/dL (75-99)
[2021-10-22] MEDS: TICAGRELOR 90 MG TAB PO SCH ×2 (16:42→21:25)
[2021-10-22] MEDS: SODIUM CHLORIDE 0.9% 1,000 ML IV SCH (16:42)
[2021-10-22 18:15] LABS: Chol/HDL Ratio 2.43 Ratio; VLDL Calculation 10.32 mg/dL (5.00-40.00)
[2021-10-22] MEDS: ASPIRIN 81 MG PO SCH (21:25)
[2021-10-22] MEDS: ASCORBIC ACID 500 MG TAB PO SCH (21:25)
[2021-10-22] MEDS: CHOLECALCIFEROL 25 MCG (1000 IU) TABLET PO SCH (21:25)
[2021-10-22] MEDS: MULTIVITAMINS, THERA 1 EACH TAB PO SCH (21:25)
--- NOTE | 2021-10-23 03:00 | MR ---
EXAMINATION TYPE: MR angio head wo/neck wo/w con DATE OF EXAM: 10/22/2021 COMPARISON: None HISTORY: recurrent TIAs CONTRAST: Standard multiplanar, multisequence MRI departmental protocol images were obtained without contrast a nd with 7.5 mL intravenous Gadavist gadolinium contrast. There is arterial flow in the anterior middle and posterior cerebral arteries. There is arterial flow in the vertebral basilar artery system. There is no mass effect. There is no evidence of intracrania l aneurysm or neovascularity. The basilar artery appears to fill mostly from the right side. There is arterial flow in the distal vertebral arteries. There is no evidence of intracranial arterial stenos is. IMPRESSION: Negative MR angiography of the brain.
[2021-10-23] MEDS: LEVOTHYROXINE 50 MCG TAB PO SCH (06:22)
[2021-10-23] MEDS: TICAGRELOR 90 MG TAB PO SCH ×2 (08:59→20:01)
[2021-10-23] MEDS: LOSARTAN 50 MG TAB PO SCH (09:00)
[2021-10-23] MEDS: ENOXAPARIN 40 MG/0.4 ML SYRINGE SQ SCH (09:00)
--- NOTE | 2021-10-23 11:18 | P.PN ---
<Don Brady - Last Filed: 10/23/21 15:07> Subjective Progress Note Date: 10/23/21 Hospital Course: Patient is a very pleasant 80-year-old female with a past medical history of h ypertension, hyperlipidemia, previous TIAs on Plavix and aspirin, and hypothyroidism. She presented to the emergency department with a chief complaint of aphasia and right arm weakness. Patient reports she went to bed shortly after 11 PM last night and awoke at 4 AM with complete aphasia. She rep orts calling her son and stating this lasted approximately 2 hours before completely resolving. Patient states couple hours later she began to feel right arm weakness and numbness so she came to the emergency department. In the emergency department patient underwent full evaluation. CBC, CMP and troponin were all unremarkable. Covid PCR was negative. CT brain without contrast negative for acute intercranial process revealing age-related atrophic and chronic small vessel ischemic changes. CTA head and neck reported negative for significant abnormalities. EKG showing normal sinus rhythm at 84 bpm. Patient admitted under our services with consultation to neurology. Initial NIH score of 1. Patient reports complete resolution of aphasia and continues to have numbness/weakness in her right index finger and right thumb only. Echocardiogram completed revealing a normal EF between 55 and 60% with suboptimal views of atria and cardiac valves with reports stating not well visualized. MRI revealed subtle area involving the high left frontal cortex. MRA head and neck was negative. Lipid profile unremarkable. Hemoglobin A1c 5.4%. secondary to limited echo results, cardiology was consulted and plans for FAHAD with Dr. Bailey tomorrow morning. Physical exam: Patient seen and fully evaluated at bedside this morning. Patient is doing well. She continues to have numbness and weakness and right index finger and right thumb, but this has shown improvement. Pt now able to make Okay sign using thumb and first finger and is able to slightly resist for a moment breakage of reno-sparks created between thumb and first finger of right hand. Patient reports mild headache this morning,, relieved after drinking cup of caffeinated coffee. She otherwise continues to deny having any current headache, lightheadedness, dizziness, chest pain, palpitations, or shortness of breath. Patient to remain on aspirin and Brilinta at this time. Vital signs reviewed and stable. General: Nontoxic, no distress and appears stated age. Derm: Skin warm and dry, normal coloration for ethnicity. Head: Atraumatic, normocephalic and symmetric. Eyes: EOMs intact, no lid lag, and anicteric sclera Mouth: no lip lesions, mucus membranes moist Cardiovascular: regular rate and rhythm with normal S1S2, no murmur, positive posterior tibial pulses bilaterally, and cap refill < 2 seconds. Lungs: Respirations even, regular, and unlabored on room air. Lungs CTA b ilaterally, no rhonchi, no rales, no wheezing, and no accessory muscle usage. Abdominal: soft, nontender to palpation, no guarding, no appreciable organomegaly Ext: ROM intact. No gross muscle atrophy, slight bilateral lower extremity edema , no contractures Neuro: Speech clear, face symmetrical and CN II-XII grossly intact. Decreased sensation right index finger and right thumb. Movement intact. Strength equal. Psych: Alert and oriented to person, place, time, and situation. Appropriate and pleasant affect. Assessment and Plan of Care: Acute ischemic CVA Aphasia, resolved Right upper extremity weakness, continues Initial NIH score of 1 Neuro checks every 4 hours Echocardiogram completed revealing of 55-60% EF MRI head and neck to be completed this afternoon Neurology following PT/OT consult Telemetry monitoring Continuation of dual antiplatelet therapy with aspirin and Brilinta Lipid profile unremarkable. hemoglobin A1c 5.4%. Hypertension Monitor vital signs and continue daily medication regimen with losartan. Hypothyroidism We will obtain a TSH with free T4 and continue daily medication regimen with levothyroxine CODE STATUS: Full code DVT prophylaxis: Lovenox Discussed with: Patient, RN, and patient's son Anticipated discharge date: possibly tomorrow pending FAHAD results Anticipated discharge place: Home w/ homecare (PT/OT) A total of 45 minutes was spent on the care of this complex patient more than 50% of the time was spent in counseling and care coordination. Objective - Vital Signs Vital signs: Vital Signs Temp 97.4 F L 10/23/21 08:00 Pulse 71 10/23/21 08:00 Resp 20 10/23/21 08:00 BP 167/85 10/23/21 08:00 Pulse Ox 96 10/23/21 08:00 Intake & Output 10/22/21 10/23/21 10/23/21 18:59 06:59 18:59 Intake Total 480 240 Output Total 300 Balance 180 240 Intake: Oral 480 240 Output: Urine 300 Other: Voiding Method Toilet Toilet Toilet # Voids 2 - Labs CBC & Chem 7: 10/22/21 09:25 10/22/21 09:25 Labs: Abnormal Lab Results - Last 24 Hours (Table) 10/22/21 10/22/21 Range/Units 09:25 16:40 POC Glucose (mg/dL) 108 H (75-99) mg/dL HDL Cholesterol 73.70 H (40.00-60.00) mg/dL <Krista Woodard - Last Filed: 10/23/21 18:19> Subjective Patient seen and examined independently. Patient was also seen by Don Brady NP and case was discussed. I am in agreement with subjective, physical exam, assessment and plan as written above and amended below. Discussed with patient that we are unable to visualize her atria well that we would suggest a transesophageal echocardiogram. She would be in agreement if neurology and cardiology agrees. Likely home after FAHAD. General: non toxic, no distress, appears at stated age Derm: warm, dry Head: atraumatic, normocephalic, symmetric Eyes: EOMI, no lid lag, anicteric sclera Mouth: no lip lesion, mucus membranes moist Cardiovascular: S1S2 reg, no murmur, positive posterior tibial pulse bilateral, Lungs: CTA bilateral, no rhonchi, no rales , no accessory muscle use Abdominal: soft, nontender to palpation, no guarding, no appreciable organomegaly Ext: no gross muscle atrophy, no edema, no contractures Neuro: CN II-XI grossly intact, continues to have weakness in right thumb and index finger Psych: Alert, oriented, appropriate affect Case was discussed with cardiology and neurology. Objective - Vital Signs Vital signs: Vital Signs Temp 97.5 F L 10/23/21 16:59 Pulse 69 10/23/21 16:59 Resp 20 10/23/21 16:59 BP 125/74 10/23/21 16:59 Pulse Ox 96 10/23/21 16:59 Intake & Output 10/22/21 10/23/21 10/23/21 18:59 06:59 18:59 Intake Total 480 476 Output Total 300 3 Balance 180 473 Intake: Oral 480 476 Output: Urine 300 3 Other: Voiding Method Toilet Toilet Toilet # Voids 2 - Labs CBC & Chem 7: 10/22/21 09:25 10/22/21 09:25
--- NOTE | 2021-10-23 13:06 | P.CRDCN ---
History of Present Illness History of present illness: Patient is a very pleasant 80-year-old female with a past medical history of hypertension, hyperlipidemia, previous TIAs on Plavix and aspirin, and hypothyroidism. She presented to the emergency department with a chief complaint of aphasia and right arm weakness, specifically in her right thumb and pointer finger. Patient reports she went to bed shortly after 11 PM last night and woke up around 4 AM with complete aphasia. She reports calling her son and stating this lasted approximately 2 hours before completely resolving. She came to the emergency department for further evaluation. She states she has a history of TIAs and has not had symptoms in 3 years. She denies history of arrhythmia or A fib, CAD, [place], or diabetes. She denies current or former tobacco use. Patient has been switched to Brilinta. DIAGNOSTICS MRI Brain- Subtle area of subcortical increased signal on diffusion-weighted imaging involving the high left frontal cortex Head and neck MR angio- negative Echocardiogram normal EF between 55-60% with suboptimal views of cardiac valves with reports stating not well visualized. CT brain without contrast negative for acute intercranial process revealing age- related atrophic and chronic small vessel ischemic changes. CTA head and neck reported negative for significant abnormalities. EKG showing normal sinus rhythm at 84 bpm. Telemetry tracings indicate sinus mechanism, heart rate 70s80s Laboratory reviewed, CBC unremarkable, sodium 138, potassium 4.1, BUN 15, serum creatinine 0.9, TSH within normal limits, magnesium 1.9 Current home cardiac medications include Plavix, Synthroid, aspirin 81mg daily REVIEW OF SYSTEMS At the time of my exam: CONSTITUTIONAL: Denies fever or chills. CARDIOVASCULAR: Denies chest pain, shortness of breath, orthopnea, PND or palpitations. RESPIRATORY: Denies cough. GASTROINTESTINAL: Denies abdominal pain, diarrhea, constipation, nausea or vomiting. MUSCULOSKELETAL: Denies myalgias. NEUROLOGIC: Denies numbness, tingling, headacbe or weakness. ENDOCRINE: Denies fatigue, weight change, polydipsia or polyurina. GENITOURINARY: Denies burning, hematuria or urgency with micturation. HEMATOLOGIC: Denies history of anemia or bleeding. PHYSICAL EXAMINATION Blood pressure 167/85 HR 71, afebrile, SpO2 96% on room air CONSTITUTIONAL: No apparent distress. HEENT: Head is normocephalic. Pupils are equal, round. Sclerae anicteric. Mucous membranes of the mouth are moist. No JVD. No carotid bruit. CHEST EXAMINATION: Lungs are clear to auscultation. No chest wall tenderness is noted on palpation or with deep breathing. HEART EXAMINATION: Regular rate and rhythm. S1, S2 heard. No murmurs, gallops or rub. ABDOMEN: Soft, nontender. Positive bowel sounds. EXTREMITIES: 2+ peripheral pulses, no lower extremity edema and no calf tenderness. NEUROLOGIC EXAMINATION: Patient is awake, alert and oriented x3. ASSESSMENT CVA Aphasia Right upper extremity weakness History of TIAs Hypertension Hypothyroidism PLAN We will plan for AFHAD 10/24/[address] Bailey. Patient is agreeable. I have discussed the risks, benefits and alternative therapies for the above- mentioned procedure and for both sedation/analgesia, if indicated, as they pertain to this patient. The patient has indicated understanding and acceptance of the risks and procedures discussed. Questions have been answered appropriately and she is agreeable to move forward with the above-stated procedure. Nurse Practitioner note has been reviewed, I agree with a documented findings and plan of care. Patient was seen and examined. Past Medical History Past Medical History: CVA/TIA, GERD/Reflux, Hypertension, Pneumonia, Syncope, Thyroid Disorder Additional Past Medical History / Comment(s): TIA, bronchitis, seasonal allergies, hypothyroid, back pain History of Any Multi-Drug Resistant Organisms: None Reported Additional Past Surgical History / Comment(s): left kidney donor, FAHAD, colonoscopy, bilateral cataract removals Past Anesthesia/Blood Transfusion Reactions: No Reported Reaction, Motion Sickness Smoking Status: Never smoker - Past Family History Father Additional Family Medical History / Comment(s): "heart issues" Mother Family Medical History: Respiratory Disorder Additional Family Medical History / Comment(s): Upper respiratory disorder. Medications and Allergies Home Medications Medication Instructions Recorded Confirmed Type Ascorbic Acid [Vitamin C] 1,000 mg PO HS 10/21/21 10/21/21 History Aspirin EC [Ecotrin Low Dose] 81 mg PO HS 10/21/21 10/21/21 History Calcium/Magnesium/Zinc 1 tab PO HS 10/21/21 10/21/21 History [Twbzcos-Besdsokgd-Ejuj Tablet] Candesartan Cilexetil 8 mg PO DAILY 10/21/21 10/21/21 History Cholecalciferol [Vitamin D3 (25 25 mcg PO HS 10/21/21 10/21/21 History Mcg = 1000 Iu)] Levothyroxine Sodium [Synthroid] 50 mcg PO DAILY 10/21/21 10/21/21 History Multivitamins, Thera [Multivitamin 1 tab PO HS 10/21/21 10/21/21 History (formulary)] [place]isades-3 Fatty Acids/Fish Oil [Fish 1 cap PO HS 10/21/21 10/21/21 History Oil 1,000 mg Softgel] Pantoprazole [Protonix] 40 mg PO DAILY 30 Days #30 tab 10/23/21 Rx Ticagrelor [Brilinta] 90 mg PO BID 30 Days #60 tab 10/23/21 Rx Allergies Allergy/AdvReac Type Severity Reaction Status Date / Time No Known Allergies Allergy Verified 10/21/21 11:43 Physical Exam Vitals: Vital Signs Temp Pulse Resp BP Pulse Ox 10/23/21 08:00 97.4 F L 71 20 167/85 96 10/23/21 04:00 97.5 F L 80 18 171/79 96 10/23/21 02:00 18 10/23/21 00:00 97 F L 74 18 158/76 98 10/22/21 19:35 97.9 F 73 18 144/80 97 10/22/21 16:00 97.8 F 76 16 137/91 97 10/22/21 14:00 16 Intake and Output 10/22/21 10/23/21 10/23/21 22:59 06:59 14:59 Intake Total 240 240 Balance 240 240 Intake: Oral 240 240 Other: Voiding Method Toilet Toilet # Voids 1 2 Results 10/22/21 09:25 10/22/21 09:25 Lipids 10/22/21 Range/Units 09:25 Triglycerides 51.60 (0.00-149.00) mg/dL Cholesterol 179.00 (0.00-200.00) mg/dL HDL Cholesterol 73.70 H (40.00-60.00) mg/dL Cholesterol/HDL Ratio 2.43 Ratio Current Medications Generic Name Dose Route Start Last Admin Trade Name Freq PRN Reason Stop Dose Admin Acetaminophen 650 mg 10/22/21 04:36 10/22/21 16:41 Acetaminophen Tab 325 Mg Tab PO 650 mg Q4HR PRN Administration Fever and/ or Pain Ascorbic Acid 1,000 mg 10/21/21 21:00 12/28/21 21:25 Ascorbic Acid 500 Mg Tab PO 1,000 mg HS HARRIET Administration Aspirin 81 mg 10/21/21 21:00 10/22/21 21:25 Aspirin 81 Mg PO 81 mg HS HARRIET Administration Cholecalciferol 25 mcg 10/21/21 21:00 10/22/21 21:25 Cholecalciferol 25 Mcg (1000 Iu) Tablet PO 25 mcg HS HARRIET Administration Enoxaparin Sodium 40 mg 10/22/21 09:00 10/23/21 09:00 Enoxaparin 40 Mg/0.4 Ml Syringe SQ 40 mg DAILY HARRIET Administration Levothyroxine Sodium 50 mcg 10/22/21 06:30 10/23/21 06:22 Levothyroxine 50 Mcg Tab PO 50 mcg DAILY@0630 HARRIET Administration Losartan Potassium 50 mg 10/22/21 09:00 10/23/21 09:00 Losartan 50 Mg Tab PO 50 mg DAILY HARRIET Administration Multivitamins 1 each 10/21/21 21:00 10/22/21 21:25 Multivitamins, Thera 1 Each Tab PO 1 each HS HARRIET Administration Ticagrelor 90 mg 10/22/21 13:00 10/23/21 08:59 Ticagrelor 90 Mg Tab PO 90 mg BID HARRIET Administration Intake and Output 10/22/21 10/23/21 10/23/21 22:59 06:59 14:59 Intake Total 240 240 Balance 240 240 Intake: Oral 240 240 Other: Voiding Method Toilet Toilet # Voids 1 2 10/22/21 09:25 10/22/21 09:25
[2021-10-23] MEDS: ASPIRIN 81 MG PO SCH (20:00)
[2021-10-23] MEDS: MULTIVITAMINS, THERA 1 EACH TAB PO SCH (20:00)
[2021-10-23] MEDS: ASCORBIC ACID 500 MG TAB PO SCH (20:01)
[2021-10-23] MEDS: CHOLECALCIFEROL 25 MCG (1000 IU) TABLET PO SCH (20:01)
[2021-10-24] MEDS: LEVOTHYROXINE 50 MCG TAB PO SCH (06:29)
--- NOTE | 2021-10-24 07:14 | P.PN ---
Subjective Progress Note Date: 10/24/21 Principal diagnosis: Stroke The patient is a pleasant 80-year-old female patient was hypertension and dyslipidemia who was admitted to the hospital with aphasia and right upper ex tremity weakness and she was diagnosed with embolic stroke. We consulted to see the patient for further cardiac evaluation and rule out of cardiac source of embolization. For that reason the patient is scheduled to undergo transesophageal echocardiogram. She was seen this morning. She stated that she is feeling overall better. She reports no symptoms of chest pain or chest discomfort. She is hemodynamically stable. She is on antiplatelet therapy. The transesophageal echocardiogram is going to be performed later on today. Further recommendation to follow that. No arrhythmia noted overnight. Objective - Vital Signs Vital signs: Vital Signs Temp 97.5 F L 10/24/21 04:00 Pulse 69 10/24/21 04:00 Resp 16 10/24/21 04:00 BP 144/81 10/24/21 04:00 Pulse Ox 98 10/24/21 04:00 Intake & Output 10/23/21 10/24/21 10/24/21 18:59 06:59 18:59 Intake Total 476 500 Output Total 3 Balance 473 500 Intake: Oral 476 500 Output: Urine 3 Other: Voiding Method Toilet Toilet # Voids 0 - Constitutional General appearance: Present: no acute distress - Respiratory Respiratory: bilateral: diminished - Cardiovascular Rhythm: regular - Labs CBC & Chem 7: 10/22/21 09:25 10/22/21 09:25 Assessment and Plan Assessment: Assessment #1 stroke #2 hypertension #3 dyslipidemia Plan #1 continue antiplatelet #2 transesophageal echocardiogram to be performed later on today #3 further recommendation to follow that
[2021-10-24] MEDS ORDERED: fentaNYL (PF) 50 MCG/ML 2 ML AMP ONE ×2 (07:27→13:12)
[2021-10-24] MEDS ORDERED: SODIUM CHLORIDE 0.9% 500 ML 500 ML IV ONE (07:35)
[2021-10-24] MEDS: BENZOCAINE SPRAY 1 CAN MUCOUS MEM ONE ×2 (07:40→07:50)
[2021-10-24] MEDS ORDERED: MIDAZOLAM 2 MG/2 ML VIAL IV ONE ×2 (08:00→13:29)
[2021-10-24] MEDS ORDERED: fentaNYL (PF) 50 MCG/ML 2 ML AMP IV ONE (08:00)
--- NOTE | 2021-10-24 08:34 | P.PN ---
Subjective Progress Note Date: 10/23/21 Patient was seen for a follow-up. Patient is sitting comfortably in the recliner. Patient's son was also present. Patient states her right hand is getting better. She can now touch individual finger of the right hand at a time with her right thumb, as previously she was only able to slide the thumb through the fingers. In other words, her rapid finger movements have improved. Denies any slurred speech, no problem with balance or any symptoms in the legs. No new focal symptoms. Patient's telemetry monitoring and the last 24 hours showing sinus rhythm, with sinus bradycardia in the 50s. No other arrhythmia. Objective - Vital Signs Vital signs: Vital Signs Temp 97.7 F 10/23/21 12:00 Pulse 73 10/23/21 12:00 Resp 18 10/23/21 12:00 BP 149/87 10/23/21 12:00 Pulse Ox 98 10/23/21 12:00 Intake & Output 10/22/21 10/23/21 10/23/21 18:59 06:59 18:59 Intake Total 480 240 Output Total 300 Balance 180 240 Intake: Oral 480 240 Output: Urine 300 Other: Voiding Method Toilet Toilet Toilet # Voids 2 - Exam Patient's mental status, speech and language functions are normal. Cranial nerves are normal. Muscle strength is improved in the right hand. Patient has less right pronator drift. Sensations are equal. No obvious ataxia for [id number]. - Labs CBC & Chem 7: 10/22/21 09:25 10/22/21 09:25 Labs: Abnormal Lab Results - Last 24 Hours (Table) 10/22/21 10/22/21 Range/Units 09:25 16:40 POC Glucose (mg/dL) 108 H (75-99) mg/dL HDL Cholesterol 73.70 H (40.00-60.00) mg/dL Assessment and Plan Assessment: * Acute ischemic stroke involving the high left frontal cortex, manifesting with right hand weakness. Patient's initial symptoms was slurred speech, which has resolved, but then had right hand weakness, which has persisted. Her NIH stroke scale is 1. Patient was not a candidate for TPA, as she came outside the window. No large vessel occlusion noted on CTA of head and neck. * Hypertension * Previous history of TIA Plan: * MRI of the brain revealed subtle area of subcortical increased signal on the diffusion weighted imaging involving the high left frontal cortex. No additional areas of abnormally increased signal noted. I reviewed MRI per sonally. There is evidence of significant cortical atrophy, with compensatory enlargement of the ventricles. No evidence of NPH. * MRA of the brain is negative. MRA of the neck also normal. * 2-D echo showed normal left-ventricular size. Normal left radicular wall thickness EF is between 55-60%. Trace MR. left atrium was not well visualized, right atrium was not well visualized. As the stroke appears embolic, I would suggest FAHAD to rule out embolic source. Discussed with primary physician. * CTA of head and neck are normal. No significant stenosis, aneurysm or occlusion. * Patient has failed aspirin 81 mg and Plavix regimen. We will stop Plavix and start her on Brilinta 90 mg twice a day. * Telemetry monitoring in the last 24 hours showing sinus rhythm, with sinus bradycardia. No other arrhythmia. * Fasting a.m. lipid panel with cholesterol 179, LDL 95, HDL 73 and triglycerides 51. We will start Lipitor 20 mg daily to bring LDL <70. * Hemoglobin A1c normal 5.4. * PT OT for right hand weakness. * Discussed with patient's son in detail.
[2021-10-24] MEDS: LOSARTAN 50 MG TAB PO SCH (09:11)
[2021-10-24] MEDS: ENOXAPARIN 40 MG/0.4 ML SYRINGE SQ SCH (09:12)
[2021-10-24] MEDS: TICAGRELOR 90 MG TAB PO SCH ×2 (09:12→21:45)
[2021-10-24 09:17] LABS: HCT 41.3 % (34.0-46.0); HGB 13.1 gm/dL (11.4-16.0); Hypochromasia Slight; MCH 30.9 pg (25.0-35.0); MCHC 31.8 g/dL (31.0-37.0); MCV 97.3 fL (80.0-100.0); Platelet Count 208 k/uL (150-450); RBC 4.25 m/uL (3.80-5.40); RDW 13.4 % (11.5-15.5); WBC 6.5 k/uL (3.8-10.6)
[2021-10-24 09:25] LABS: Albumin 3.4 g/dL (3.5-5.0); Calcium 9.3 mg/dL (8.4-10.2); Magnesium 1.9 mg/dL (1.6-2.3); Potassium 4.4 mmol/L (3.5-5.1); Total Bilirubin 0.5 mg/dL (0.2-1.3); Total Protein 6.7 g/dL (6.3-8.2)
--- NOTE | 2021-10-24 10:25 | P.PCN ---
Date of Procedure: 10/24/21 Operative Findings: TRANSESOPHAGEAL ECHOCARDIOGRAM BUY BOAT OPERATOR: ANANTH ALMANZAR MD, RPVI INDICATION: The patient is an 80-year-old female patient who was diagnosed with a stroke and there was a concern about embolic stroke. For that reason transesophageal echocardiogram was required SEDATION: Conscious sedation with sedation length of 15 minutes COMPLICATION: None PROCEDURE DESCRIPTION: After obtaining an informed consent, the patient was brought to transesophageal echocardiogram room. Pulse oximetry and heart monitors were attached to the patient. The patient throat was sprayed using lidocaine. The patient was turned into left lateral position. After that a bite guard was placed. After an appropriate conscious sedation was initiated, the transesophageal echocardiogram was advanced through a bite guard into the mid esophagus. A 2-D echocardiogram images, color Doppler images, continuous wave images, pulse-wave images, of various cardiac structure were performed. After that the transesophageal echocardiogram probe was advanced into the stomach and fixed to obtain transgastric view was. The probe was brought into the mid esophagus. Inter-atrial septum was interrogated using 2D images, color Doppler images, and then contrast study. After that transesophageal echocardiogram was withdrawn out and upon withdrawing the descending thoracic aorta all the way up to the arch was evaluated. FINDING: The left ventricular dimension and systolic function appeared to be within normal limits. The ejection fraction appears to be in the range of 50-55%. The right ventricle appeared to be of normal size and function. The left atrium and right atrium are mildly dilated. The interatrial septum appears to be hyperdynamic/aneurysmal with patent foramen ovale and evidence of [id number] shunt identified by multiple contrast injection. The left atrial appendage appeared to be free from any thrombus. Aortic valve is trileaflet valve without any stenosis with mild insufficiency The mitral valve is mildly thickened with mild MR only. [id number] tricuspid regurgitation seen. No evidence of pericardial effusion CONCLUSION: 1. Aneurysmal interatrial septum with evidence of patent foramen ovale seems to be large with [id number] shunt 2. Normal left atrial appendage without any evidence of thrombus 3. Normal left ventricular dimension and systolic function 4. Normal right ventricular dimension and systolic function 5. Aortic sclerosis without stenosis with mild insufficiency 6. Thickened mitral valve leaflets with mild MR 7. Normal tricuspid valve and pulmonic valve 8. No evidence of pericardial effusion
--- NOTE | 2021-10-24 12:30 | P.PN ---
<Don Brady - Last Filed: 10/24/21 12:13> Subjective Progress Note Date: 10/24/21 Hospital Course: Patient is a very pleasant 80-year-old female with a past medical history of h ypertension, hyperlipidemia, previous TIAs on Plavix and aspirin, and hypothyroidism. She presented to the emergency department with a chief complaint of aphasia and right arm weakness. Patient reports she went to bed shortly after 11 PM last night and awoke at 4 AM with complete aphasia. She rep orts calling her son and stated this lasted approximately 2 hours before completely resolving. Patient states couple hours later she then began to feel right arm weakness and numbness so she came to the emergency department. In the emergency department patient underwent full evaluation. CBC, CMP and troponin were all unremarkable. Covid PCR was negative. CT brain without contrast negative for acute intercranial process revealing age-related atrophic and chronic small vessel ischemic changes. CTA head and neck reported negative for significant abnormalities. EKG showing normal sinus rhythm at 84 bpm. Patient admitted under our services with consultation to neurology. Initial NIH score of 1. Patient reports complete resolution of aphasia and continues to have numbness/weakness in her right index finger and right thumb only. Echocardiogram completed revealing a normal EF between 55 and 60% with suboptimal views of atria and cardiac valves with reports stating not well visualized. MRI revealed subtle area involving the high left frontal cortex. MRA head and neck was negative. Lipid profile unremarkable. Hemoglobin A1c 5.4%. Secondary to limited echo results, pt underwent FAHAD this morning which reportedly revealed a very large PFO with right to left shunting. Dr. Bailey pl ans to take patient for closure of PFO this afternoon. Physical exam: Patient seen and fully evaluated at bedside this morning. She just returned from FAHAD and reports she is doing well. She does continue to have numbness and weakness of her right index finger and right thumb, but continues to show improvement. Patient continues to deny having any headache, lightheadedness, dizziness, chest pain, palpitations, or shortness of breath. FAHAD didn't reveal a very large PFO with right to left shunting, Dr. Bailey plans to take patient for closure of this PFO this afternoon. Tentative plans is for patient to be discharged tomorrow morning and to remain on aspirin and Brilinta. Vital signs reviewed and stable. General: Nontoxic, no distress and appears stated age. Derm: Skin warm and dry, normal coloration for ethnicity. Head: Atraumatic, normocephalic and symmetric. Eyes: EOMs intact, no lid lag, and anicteric sclera Mouth: no lip lesions, mucus membranes moist Cardiovascular: regular rate and rhythm with normal S1S2, no murmur, positive posterior tibial pulses bilaterally, and cap refill < 2 seconds. Lungs: Respirations even, regular, and unlabored on room air. Lungs CTA bilaterally, no rhonchi, no rales, no wheezing, and no accessory muscle usage. Abdominal: soft, nontender to palpation, no guarding, no appreciable organomegal y Ext: ROM intact. No gross muscle atrophy, minimal bilateral lower extremity e lilliana, no contractures Neuro: Speech clear, face symmetrical and CN II-XII grossly intact. Decreased sensation right index finger and right thumb. Movement intact. Strength equal. Psych: Alert and oriented to person, place, time, and situation. Appropriate and pleasant affect. Assessment and Plan of Care: Acute ischemic CVA Aphasia, resolved Right upper extremity weakness, continues Initial NIH score of 1 Neuro checks every 4 hours Echocardiogram completed revealing of 55-60% EF MRI revealed subtle area involving the high left frontal cortex. MRA head and neck was negative FAHAD this morning which reportedly revealed a very large PFO with right to left shunting. Dr. Bailey plans to take patient for closure of PFO this afternoon. Neurology following PT/OT consult Telemetry monitoring Continuation of dual antiplatelet therapy with aspirin and Brilinta Lipid profile unremarkable. Hemoglobin A1c 5.4%. Hypertension Monitor vital signs and continue daily medication regimen with losartan. Hypothyroidism We will obtain a TSH with free T4 and continue daily medication regimen with levothyroxine CODE STATUS: Full code DVT prophylaxis: Lovenox Discussed with: Patient, RN, and patient's son Anticipated discharge date: Tomorrow morning Anticipated discharge place: Home w/ homecare (PT/OT) A total of 45 minutes was spent on the care of this complex patient more than 50% of the time was spent in counseling and care coordination. Objective - Vital Signs Vital signs: Vital Signs Temp 97.5 F L 10/24/21 04:00 Pulse 69 10/24/21 04:00 Resp 16 10/24/21 04:00 BP 144/81 10/24/21 04:00 Pulse Ox 98 10/24/21 04:00 Intake & Output 10/23/21 10/24/21 10/24/21 18:59 06:59 18:59 Intake Total 476 500 300 Output Total 3 Balance 473 500 300 Intake: IV 300 Oral 476 500 Output: Urine 3 Other: Voiding Method Toilet Toilet # Voids 0 - Labs CBC & Chem 7: 10/24/21 09:04 10/24/21 09:04 Labs: Abnormal Lab Results - Last 24 Hours (Table) 10/24/21 Range/Units 09:04 Chloride 110 H (98-107) mmol/L Carbon Dioxide 20 L (22-30) mmol/L BUN 19 H (7-17) mg/dL Albumin 3.4 L (3.5-5.0) g/dL <Krista Woodard - Last Filed: 10/24/21 20:25> Subjective Don Brady NP rendered care for this patient independently, reviewed the findings and plan as documented in the note above. I did not physically speak with or examine the patient on this date. Acute embolic CVA left frontal lobe Objective - Vital Signs Vital signs: Vital Signs Temp 98.0 F 10/24/21 16:00 Pulse 90 10/24/21 16:00 Resp 16 10/24/21 16:00 BP 138/79 10/24/21 16:00 Pulse Ox 99 10/24/21 16:00 Intake & Output 10/24/21 10/24/21 10/25/21 06:59 18:59 06:59 Intake Total 500 1248 Balance 500 1248 Intake: IV 450 Intake, IV Titration 200 Amount Sodium Chloride 0.9% 1, 150 000 ml @ 75 mls/hr IV . [id number] [facility] Rx#:[id number] ceFAZolin 2 gm In Sodium 50 Chloride 0.9% 50 ml @ 100 mls/hr IVPB ONCE ONE Rx# :[id number] Oral 500 598 Other: Voiding Method Toilet Toilet # Voids 0 1 - Labs CBC & Chem 7: 10/24/21 09:04 10/24/21 09:04 Labs: Abnormal Lab Results - Last 24 Hours (Table) 10/24/21 Range/Units 09:04 Chloride 110 H (98-107) mmol/L Carbon Dioxide 20 L (22-30) mmol/L BUN 19 H (7-17) mg/dL Albumin 3.4 L (3.5-5.0) g/dL
[2021-10-24] MEDS ORDERED: LIDOCAINE 1% INJ 10MG/ML (20 ML MDV) ONE (13:12)
[2021-10-24] MEDS ORDERED: HEPARIN SODIUM 1,000 UN/ML (10ML VL) ONE (13:12)
[2021-10-24] MEDS ORDERED: LIDOCAINE 1% INJ 10MG/ML (20 ML MDV) SQ ONE ×2 (13:29→13:30)
[2021-10-24] MEDS ORDERED: IV FLUID CONTINUATION 900 ML IV ONE (13:30)
[2021-10-24] MEDS ORDERED: HEPARIN SODIUM 1,000 UN/ML (10ML VL) IV ONE (13:34)
[2021-10-24] MEDS ORDERED: IOPAMIDOL-300 50ML BTL INJ ONE (13:55)
[2021-10-24] MEDS ORDERED: SODIUM CHLORIDE 0.9% 1,000 ML IV SCH (14:15)
--- NOTE | 2021-10-24 19:56 | PCN ---
PROCEDURE NOTE DATE OF SERVICE: 10/24/2021 PERFORMING PHYSICIAN: Pratik Bailey M.D. PROCEDURE PERFORMED: 1. Successful percutaneous closure of patent foramen ovale using 30 mm Amplatzer PFO occluder with an excellent result. 2. Intracardiac echocardiogram. 3. Right atrial angiogram. 4. Ultrasound-guided access of the right common femoral vein x2. INDICATION: This is an 80-year-old female patient who has been experiencing recurrent stroke in spite of being on dual anti-platelet therapy. She underwent transesophageal echocardiogram and that revealed large patent foramen ovale with [id number] shunt. APPROACH: Right common femoral vein. COMPLICATIONS: None. LEVEL OF SEDATION: Moderate, with sedation length of 30 minutes. PROCEDURE DESCRIPTION: After obtaining informed consent, the patient was brought to the cardiac laborer/key man. The right common femoral vein was cannulated using micropuncture technique under ultrasound guidance x2. Then I placed two 11 cm 8-Micronesian sheaths at the right common femoral vein. Anticoagulation was initiated using heparin with continuous ACT monitoring. I did intracardiac echocardiogram images where the probe was advanced under fluoroscopic guidance to the right atrium. After that I was able to identify the patent foramen ovale and measure it. Subsequently the PFO was crossed using an 0.035 J wire. The wire was advanced to the left upper pulmonary vein. After that, I did advance a multipurpose catheter over the wire. Subsequently I did exchange the wire for a Abebe wire. After that and after prepping the Amplatzer PFO occluder, which was 30 mm under continuous saline flush, I did exchange my short sheath for a Shuttle sheath over the Abebe wire. All the way the sheath was advanced to the left atrium. After that the wire and dilator were removed. Then after that I did load the Amplatzer PFO occluder in the shuttle sheath. I deployed the left atrial occluder first, then right atrial occluder. After interrogating that using intracardiac echo, we were satisfied with the results, with no residual shunt. I did multiple manipulations to pull the device out, and the device was stable. After that I did exchange my long sheath for a short sheath. The procedure was completed without any complication. POST-PROCEDURE MANAGEMENT: 1. Continue dual anti-platelet therapy. 2. The patient is going to be discharged tomorrow. MMODL / IJN: [id number] /
[2021-10-24] MEDS ORDERED: ATORVASTATIN 20 MG TAB PO SCH (21:00)
[2021-10-24] MEDS: ASCORBIC ACID 500 MG TAB PO SCH (21:45)
[2021-10-24] MEDS: MULTIVITAMINS, THERA 1 EACH TAB PO SCH (21:45)
[2021-10-24] MEDS: ASPIRIN 81 MG PO SCH (21:46)
[2021-10-24] MEDS: CHOLECALCIFEROL 25 MCG (1000 IU) TABLET PO SCH (21:46)
--- NOTE | 2021-10-24 22:43 | P.PN ---
Subjective Progress Note Date: 10/24/21 Patient was seen for a follow-up. Patient just returned back from [facility]. Patient was diagnosed with a large PFO. Patient had undergone PFO closure by Dr. Moeller. Patient at present is doing fine, denies any neurological symptoms. No chest pain. No double vision. Patient's telemetry monitoring and the last 24 hours showing sinus rhythm, with at times sinus tachycardia in 120s with activity. Objective - Vital Signs Vital signs: Vital Signs Temp 97.5 F L 10/24/21 04:00 Pulse 74 10/24/21 08:35 Resp 16 10/24/21 08:35 BP 145/90 10/24/21 08:35 Pulse Ox 99 10/24/21 08:35 Intake & Output 10/23/21 10/24/21 10/24/21 18:59 06:59 18:59 Intake Total 476 500 450 Output Total 3 Balance 473 500 450 Intake: IV 450 Oral 476 500 Output: Urine 3 Other: Voiding Method Toilet Toilet Toilet # Voids 0 - Exam Patient's mental status, speech and language functions are normal. Cranial nerves are normal. Muscle strength is improved in the right hand. Patient has mild right pronation, no drift. Patient's strength is normal in the left arm and both legs. In the right upper limb, her only weakness is in the campus administrative assistant 5-, and interossei 5-. Sensations are equal. No ataxia for bkngbm-yb-qiqs testing. 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 Patient's initial symptoms was slurred speech, which has resolved, but then had right hand weakness, which has persisted. Patient was not a candidate for TPA, as she came outside the window. No large vessel occlusion noted on CTA of head and neck. * Hypertension * Previous history of TIA Plan: * Patient underwent FAHAD today. It revealed aneurysmal interatrial septum with evidence of PFO seems to be large with wjixt-py-irby shunt. Normal left atrial appendage without any evidence of thrombus. Aortic sclerosis without stenosis. * Patient underwent successful percutaneous closure of the PFO using 13 mm Amplatzer PFO occluder with an excellent result. * MRI of the brain revealed subtle area of subcortical increased signal on the diffusion weighted imaging involving the high left frontal cortex. No additional areas of abnormally increased signal noted. I reviewed MRI p ersonally. There is evidence of significant cortical atrophy, with compensatory enlargement of the ventricles. No evidence of NPH. * MRA of the brain is negative. MRA of the neck also normal. * CTA of head and neck are normal. No significant stenosis, aneurysm or occlusion. * Continue aspirin 81 mg daily and Brilinta 90 mg twice a day for 30 days, then switch back to aspirin 81 mg and Plavix 75 mg daily indefinitely. * Fasting a.m. lipid panel with cholesterol 179, LDL 95, HDL 73 and triglycerides 51. We will start Lipitor 20 mg daily to bring LDL <70. * Hemoglobin A1c normal 5.4. * PT OT for right hand weakness. * Discussed with patient's son in detail. Also discussed with Dr. Moeller in detail.
[2021-10-25] MEDS: LEVOTHYROXINE 50 MCG TAB PO SCH (06:00)
[2021-10-25] MEDS: TICAGRELOR 90 MG TAB PO SCH (08:16)
[2021-10-25] MEDS: LOSARTAN 50 MG TAB PO SCH (08:16)
[2021-10-25] MEDS: ENOXAPARIN 40 MG/0.4 ML SYRINGE SQ SCH (08:16)
--- NOTE | 2021-10-25 08:19 | XR ---
EXAMINATION TYPE: XR chest 2V DATE OF EXAM: 10/25/2021 COMPARISON: 10/21/2021 HISTORY: 80-year-old female ASD/PFO placement TECHNIQUE: PA and lateral views FINDINGS: Asymmetric elevation left hemidiaphragm persists with volume loss in the left base. Heart secondarily slightly shifted to the right, unchanged. PFO closure device noted now. Mild hyperinflation right cici ng. No consolidation or pleural effusion seen. IMPRESSION: 1. Interval placement of a PFO closure device. 2. There may be underlying emphysema. 3. Continued asymmetric elevation left hemidiaphragm with associated volume loss and slight mass effe ct onto the heart. If concern for hemidiaphragmatic paralysis, a fluoroscopic sniff test could be con sidered.
[2021-10-25 08:55] LABS: Basophils # (A) 0.1 k/uL (0-0.2); Basophils % (A) 1 %; Eosinophils # (A) 0.4 k/uL (0-0.7); Eosinophils % (A) 6 %; Lymphocytes % (A) 14 %; MCH 30.1 pg (25.0-35.0); MCHC 31.7 g/dL (31.0-37.0); MCV 95.1 fL (80.0-100.0); Mean Platelet Volume 8.2; Monocytes # (A) 0.7 k/uL (0-1.0); Monocytes % (A) 10 %; Neutrophils % (A) 68 %; Platelet Count 229 k/uL (150-450); RBC 3.99 m/uL (3.80-5.40); RDW 13.6 % (11.5-15.5); WBC 7.3 k/uL (3.8-10.6)
[2021-10-25 09:10] LABS: Potassium 4.2 mmol/L (3.5-5.1)
--- NOTE | 2021-10-25 11:22 | P.DS ---
<Don Brady - Last Filed: 10/25/21 17:12> Providers Expected date of discharge: 10/25/21 Hospital Course: Discharge Diagnosis: Acute ischemic CVA Aphasia, resolved Right upper extremity weakness, continues Hypertension Hypothyroidism Hospital Course: Patient is a very pleasant 80-year-old female with a past medical history of hypertension, hyperlipidemia, previous TIAs on Plavix and aspirin, and hyp othyroidism. She presented to the emergency department with a chief complaint of aphasia and right arm weakness. Patient reports she went to bed shortly after 11 PM last night and awoke at 4 AM with complete aphasia. She reports calling her son and stated this lasted approximately 2 hours before completely resolving. Patient states couple hours later she then began to feel right arm weakness and numbness so she came to the emergency department. In the emergency department patient underwent full evaluation. CBC, CMP and troponin were all unremarkable. Covid PCR was negative. CT brain without contrast negative for acute intercranial process revealing age-related atrophic and chronic small vessel ischemic changes. CTA head and neck reported negative for significant abnormalities. EKG showing normal sinus rhythm at 84 bpm. Patient admitted under our services with consultation to neurology. Initial NIH score of 1. Patient reports complete resolution of aphasia and continues to have numbness/weakness in her right index finger and right thumb only. Echocardiogram completed revealing a normal EF between 55 and 60% with suboptimal views of atria and cardiac valves with reports stating not well visualized. MRI revealed subtle area involving the high left frontal cortex. MRA head and neck was negative. Lipid profile unremarkable. Hemoglobin A1c 5.4%. Secondary to limited echo results, pt underwent MICHAEL this morning which reportedly revealed a very large PFO with right to left shunting. Dr. Bailey tip patient to all are for closure of PFO on 10/24/21. Patient monitored overnight and condition remains stable. Patient had no bleeding or hematoma to right groin access site. Vital signs stable. Labs remained unremarkable. Patient medically stable for discharge at this time cardiology and neurology recommending follow-up outpatient in 1 week. Patient to remain on dual antiplatelet therapy with aspirin and Brillinta and was started on Atorvastatin. Physical exam: Vital signs reviewed and stable. General: Nontoxic, no distress and appears stated age. Derm: Skin warm and dry, normal coloration for ethnicity. Head: Atraumatic, normocephalic and symmetric. Eyes: EOMs intact, no lid lag, and anicteric sclera Mouth: no lip lesions, mucus membranes moist Cardiovascular: regular rate and rhythm with normal S1S2, no murmur, positive posterior tibial pulses bilaterally, and cap refill < 2 seconds. Lungs: Respirations even, regular, and unlabored on room air. Lungs CTA bilaterally, no rhonchi, no rales, no wheezing, and no accessory muscle usage. Abdominal: soft, nontender to palpation, no guarding, no appreciable organomegaly Ext: ROM intact. No gross muscle atrophy, minimal bilateral lower extremity edema, no contractures Neuro: Speech clear, face symmetrical and CN II-XII grossly intact. Decreased sensation right index finger and right thumb. Movement intact. Strength equal. Psych: Alert and oriented to person, place, time, and situation. Appropriate and pleasant affect. A total of 45 minutes of time were spent preparing this complex discharge summary. Patient Condition at Discharge: Stable Plan - Discharge Summary Discharge Rx Participant: No New Discharge Prescriptions: New Ticagrelor [Brilinta] 90 mg PO BID 30 Days #60 tab Pantoprazole [Protonix] 40 mg PO DAILY 30 Days #30 tab Atorvastatin [Lipitor] 40 mg PO HS 30 Days #60 tab Continue Aspirin EC [Ecotrin Low Dose] 81 mg PO HS Idanha-3 Fatty Acids/Fish Oil [Fish Oil 1,000 mg Softgel] 1 cap PO HS Cholecalciferol [Vitamin D3 (25 Mcg = 1000 Iu)] 25 mcg PO HS Ascorbic Acid [Vitamin C] 1,000 mg PO HS Candesartan Cilexetil 8 mg PO DAILY Multivitamins, Thera [Multivitamin (formulary)] 1 tab PO HS Calcium/Magnesium/Zinc [Kporeon-Tzylgevuv-Ovsr Tablet] 1 tab PO HS Levothyroxine Sodium [Synthroid] 50 mcg PO DAILY Discontinued Fhyxpze-Kifj-Knkm [id number] [Excedrin] 1 tab PO Q4HR PRN PRN Reason: Migraine Headache Clopidogrel [Plavix] 75 mg PO HS Discharge Medication List Ascorbic Acid [Vitamin C] 1,000 mg PO HS 10/21/21 [History] Aspirin EC [Ecotrin Low Dose] 81 mg PO HS 10/21/21 [History] Calcium/Magnesium/Zinc [Vzprxvx-Bmbsfupin-Quwp Tablet] 1 tab PO HS 10/21/21 [History] Candesartan Cilexetil 8 mg PO DAILY 10/21/21 [History] Cholecalciferol [Vitamin D3 (25 Mcg = 1000 Iu)] 25 mcg PO HS 10/21/21 [History] Levothyroxine Sodium [Synthroid] 50 mcg PO DAILY 10/21/21 [History] Multivitamins, Thera [Multivitamin (formulary)] 1 tab PO HS 10/21/21 [History] Idanha-3 Fatty Acids/Fish Oil [Fish Oil 1,000 mg Softgel] 1 cap PO HS 10/21/21 [History] Pantoprazole [Protonix] 40 mg PO DAILY 30 Days #30 tab 10/23/21 [Rx] Ticagrelor [Brilinta] 90 mg PO BID 30 Days #60 tab 10/23/21 [Rx] Atorvastatin [Lipitor] 40 mg PO HS 30 Days #60 tab 10/25/21 [Rx] Follow up Appointment(s)/Referral(s): Raudel Marrero MD [Primary Care Provider] - 1-2 days Pratik Bailey MD [STAFF PHYSICIAN] - 1 Week (Will need to see cardiology for holter monitor to rule out underlying arrythmia) Des [place] MD [Medical Doctor] - 1 Week Patient Instructions/Handouts: *Surgery [facility] - After Heart Catheterization - Property Specialist Instructions, Transient Ischemic Attack (DC) Activity/Diet/Wound Care/Special Instructions: Activity: As tolerated. Take breaks as needed. Diet: Heart healthy and carb consistent diet. Avoid salts, or foods with hidden salts such as canned or boxed foods and frozen dinners. Extra salt makes your heart work harder and traps the fluid in your body for longer. Special Instructions: Take all of your medications as directed and remember to keep all of your doctor's appointments and follow-up as needed. Wishing you a happy, healthy, and blessed New Year!!! I hope you have the best time in [place]!!!! Thank you for allowing us to participate in your care, it was truly a pleasure having you for our patient!!! Discharge Disposition: HOME SELF-CARE <Krista Woodard - Last Filed: 10/25/21 20:36> Providers Date of admission: 10/21/21 12:35 Attending physician: Krista Woodard DO Consults: 10/21/21 12:35 Consult Physician Urgent Consulting Provider: Hasan,Suheb Consult Reason/Comments: cva Do you want consulting provider notified?: Yes 10/23/21 09:46 Consult Physician Routine Consulting Provider: Pratik Bailey Consult Reason/Comments: michael Do you want consulting provider notified?: Yes Primary care physician: Raudel Marrero MD Hospital Course: Don Brady NP rendered care for this patient independently, reviewed the findings and plan as documented in the note above. I did not physically speak with or examine the patient on this date.
[2021-10-25 11:59] VITALS: BP 156/76; PULSE 82; RESP 14; TEMP 97.1
--- NOTE | 2021-10-25 12:05 | P.PN ---
Subjective Patient is a very pleasant 80-year-old female with a past medical history of hypertension, hyperlipidemia, previous TIAs on Plavix and aspirin, and h ypothyroidism. She presented to the emergency department with a chief complaint of aphasia and right arm weakness, specifically in her right thumb and pointer finger. Patient found to have acute ischemic stroke involving the high left frontal cortex. FAHAD was completed by Dr. Bailey on 10/24/21 which revealed aneurysmal interatrial septum with evidence of patent foramen ovale seems to be large with fhrpb-ef-crqw shunt, aortic sclerosis without stenosis with mild insufficiency and thickened mitral valve leaflets with mild MR. Patient underwent percutaneous septal closure with Dr. Bailey 10/24/21. Patient seen at bedside, no distress. She denies any chest pain or shortness of breath Chest x-ray revealed interval placement of a PFO closure device. Asymmetric elevation of left hemidiaphragm persists with volume loss in the left base. Mild hyperinflation right lung base concerning for hemidiaphragmatic paralysis fluoroscopic sniff test could be considered. Labs, WBC 7.3, hemoglobin 12, platelets 229, sodium 137, potassium 4.2, BUN 18, serum creatinine 0.9 She's currently maintained on aspirin 81 mg daily, atorvastatin 20 mg nightly, losartan 50 mg daily, Brilinta 90 mg twice a day PHYSICAL EXAMINATION Vitals reviewed CONSTITUTIONAL: No apparent distress. HEENT: Neck Supple No JVD CHEST EXAMINATION: Lungs are clear to auscultation. HEART EXAMINATION: Regular rate and rhythm. S1, S2 heard. No murmurs, gallops or rub. ABDOMEN: Soft, nontender. Positive bowel sounds. EXTREMITIES: 2+ peripheral pulses, no lower extremity edema and no calf tenderness. NEUROLOGIC EXAMINATION: Patient is awake, alert and oriented x3. ASSESSMENT CVA Aphasia Right upper extremity weakness History of TIAs Hypertension Hypothyroidism PLAN Limited echocardiogram reviewed by Dr. Flynn.From a cardiology perspective, patient is stable to be discharged home. Patient to follow up with Dr. Bailey next week. Nurse Practitioner note has been reviewed, I agree with a documented findings and plan of care. Patient was seen and examined. Objective - Vital Signs Vital signs: Vital Signs Temp 97.5 F L 10/24/21 04:00 Pulse 74 10/24/21 08:35 Resp 16 10/24/21 08:35 BP 145/90 10/24/21 08:35 Pulse Ox 99 10/24/21 08:35 Intake & Output 10/23/21 10/24/21 10/24/21 18:59 06:59 18:59 Intake Total 476 500 350 Output Total 3 Balance 473 500 350 Intake: IV 350 Oral 476 500 Output: Urine 3 Other: Voiding Method Toilet Toilet Toilet # Voids 0 - Labs CBC & Chem 7: 10/25/21 07:49 10/25/21 07:49 Labs: Abnormal Lab Results - Last 24 Hours (Table) 10/24/21 Range/Units 09:04 Chloride 110 H (98-107) mmol/L Carbon Dioxide 20 L (22-30) mmol/L BUN 19 H (7-17) mg/dL Albumin 3.4 L (3.5-5.0) g/dL
--- NOTE | 2021-10-25 21:20 | P.PN ---
Subjective Progress Note Date: 10/25/21 Patient was seen for a follow-up. Patient is sitting comfortably in the recliner. Offers no new complaints. Right hand is getting more stronger. Fine motor is improving. No other neurological symptoms. Objective - Vital Signs Vital signs: Vital Signs Temp 97.1 F L 10/25/21 11:58 Pulse 82 10/25/21 11:58 Resp 14 10/25/21 11:58 BP 156/76 10/25/21 11:58 Pulse Ox 97 10/25/21 08:00 Intake & Output 10/25/21 10/25/21 10/26/21 06:59 18:59 06:59 Intake Total 10 240 Balance 10 240 Intake: IV 10 Invasive Line 3 10 Oral 240 Other: Voiding Method Toilet # Voids 2 - Exam Patient's mental status, speech and language functions are normal. No aphasia or dysarthria. Cranial nerves are normal. Muscle strength is improved in the right hand. Patient has mild right pronation, no drift. Patient's strength is normal in the left arm and both legs. In the right upper limb, her only weakness is in the construction grip 5-, and interossei 5-. Sensations are equal. No ataxia for fqgmbk-yl-iftj testing. 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 Patient's initial symptoms was slurred speech, which has resolved, but then had right hand weakness, which has persisted. Patient was not a candidate for TPA, as she came outside the window. No large vessel occlusion noted on CTA of head and neck. * PFO noted on FAHAD, status post closure of PFO. * Hypertension * Hyperlipidemia * Previous history of TIA Plan: * Patient is doing well. No further neurological symptoms. The strength in the right hand has improved. * Patient had a FAHAD performed yesterday, which revealed aneurysmal interatrial septum with evidence of PFO seems to be large with [id number]-ff-iasl shunt. Normal left atrial appendage without any evidence of thrombus. Aortic sclerosis without stenosis. * Patient underwent successful percutaneous closure of the PFO using 13 mm Amplatzer PFO occluder with an excellent result. * MRI of the brain revealed subtle area of subcortical increased signal on the diffusion weighted imaging involving the high left frontal cortex. No additional areas of abnormally increased signal noted. I reviewed MRI personally. There is evidence of significant cortical atrophy, with compensatory enlargement of the ventricles. No evidence of NPH. * MRA of the brain is negative. MRA of the neck also normal. * CTA of head and neck are normal. No significant stenosis, aneurysm or occlusion. * Continue aspirin 81 mg daily and Brilinta 90 mg twice a day for 30 days, then switch back to aspirin 81 mg and Plavix 75 mg daily indefinitely. * Fasting a.m. lipid panel with cholesterol 179, LDL 95, HDL 73 and triglycerides 51. We will start Lipitor 20 mg daily to bring LDL <70. * Hemoglobin A1c normal 5.4. * PT OT for right hand weakness. * Neurologically clear for discharge.
--- NOTE | 2021-10-30 12:17 | ECHOF ---
Referral Reason:Post ASD/PFO Insertion MEASUREMENTS -------- HEIGHT: 157.5 cm WEIGHT: 80.3 kg BP: 158/77 FINDINGS -------- Limited Study There is an interatrial closure device in place without evidence of shunt. There is no pericardial effusion. CONCLUSIONS -------- 1. There is an interatrial closure device in place without evidence of shunt. 2. There is no pericardial effusion. HANDLE SEWER: Marycruz Rivera RDCS
== END 2021-10-25 12:25 | disposition home or self-care (01) | DRG 982 ==
LOC: EC 10:45 → 3SCARD 12:35
PROVIDERS: ADMIT Internal Medicine; ATTEND Internal Medicine
PROC: B24BZZZ Ultrasonography of Heart with Aorta (ICD-10-PCS; principal; 2021-10-24 07:30)
PROC: 02U53JZ Supplement Atrial Septum with Synthetic Substitute, Percutaneous Approach (ICD-10-PCS; principal; 2021-10-24 07:30)
PROC: B24BZZ4 Ultrasonography of Heart with Aorta, Transesophageal (ICD-10-PCS; 2021-10-24 16:20)
DX: I63.40 Cerebral infarction due to embolism of unspecified cerebral artery (principal); Q21.1 Atrial septal defect; I70.0 Atherosclerosis of aorta; E78.5 Hyperlipidemia, unspecified; I10 Essential (primary) hypertension; M54.9 Dorsalgia, unspecified; G83.21 Monoplegia of upper limb affecting right dominant side; R29.701 NIHSS score 1; R47.01 Aphasia; Z20.822 Contact with and (suspected) exposure to COVID-19; E03.9 Hypothyroidism, unspecified; Z79.02 Long term (current) use of antithrombotics/antiplatelets; Z79.82 Long term (current) use of aspirin; K21.9 Gastro-esophageal reflux disease without esophagitis; E66.9 Obesity, unspecified; Z68.32 Body mass index [BMI] 32.0-32.9, adult; Z79.890 Hormone replacement therapy; Z79.899 Other long term (current) drug therapy; Z86.73 Personal history of transient ischemic attack (TIA), and cerebral infarction without residual deficits; Z90.5 Acquired absence of kidney; Z83.6 Family history of other diseases of the respiratory system; Z82.49 Family history of ischemic heart disease and other diseases of the circulatory system; Z87.01 Personal history of pneumonia (recurrent); Z98.42 Cataract extraction status, left eye; Z98.41 Cataract extraction status, right eye; Z98.890 Other specified postprocedural states; Z60.2 Problems related to living alone
CPT/HCPCS: 36415; 70450; 70496; 70498; 70544; 70549; 70551; 71046; 80048; 80053; 80061; 83036; 83735; 84443; 84484; 85025; 85027; 85610; 85730; 87635; 93005; 93306; 93308; 93312; 93320; 93325; 93580; 93662; 96360; 99285

== ENCOUNTER → 2021-10-30 | Outpatient (CLI) | payer MEDICARE ==
--- NOTE | 2021-10-30 08:54 | US ---
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 Right groin heart catheterization 1 week a go with palpable area with tenderness EXAM PERFORMED: Grayscale and color Doppler duplex imaging performed of the groin, post cardiac sandi ter to assess for pseudoaneurysm. SIDE PERFORMED: Right groin Color and Waveform Doppler performed to assess for the presence of pseudoaneurysm; FINDINGS: Is there ultrasound evidence of a pseudoaneurysm: no Is there evidence of AV shunting: no Is there a fluid collection present: no Grounds Supervisor notes: No abnormalities seen at this time IMPRESSION: No sonographic evidence for right groin pseudoaneurysm or hematoma.
== END | disposition home or self-care (01) ==
LOC: RADUSWWP 07:54
PROVIDERS: ATTEND Internal Medicine Interventional Cardiology
DX: I72.9 Aneurysm of unspecified site (principal)
CPT/HCPCS: 93975

== ENCOUNTER → 2024-02-17 | Outpatient (CLI) | payer MEDICARE ==
--- NOTE | 2024-02-17 15:11 | US ---
EXAMINATION TYPE: US kidneys/renal and bladder DATE OF EXAM: 02/17/2024 COMPARISON: NONE CLINICAL INDICATION: Female, 83 years old with history of N18.30 CKD; CKD, left nephrectomy EXAM MEASUREMENTS: Right Kidney: 10.9 x 5.5 x 4.9 cm Left Kidney: Surgically absent Right Kidney: cystic lesion upper pole = 2.1 x 1.6 x 2.0cm. dilated renal pelvis Left Kidney: surgically absent Bladder: appears wnl Bilateral Jets seen: no incidental finding: cholelithiasis There is no evidence for hydronephrosis at this point in time. No nephrolithiasis is seen. Renal cortical thickness and echogenicity maintained. IMPRESSION: 1. Post left nephrectomy with a 2.1 cm simple appearing right renal cyst. 2. Mild prominence centrally of the right renal pelvis suspicious for mild right hydronephrosis. 3. Incidental note made of cholelithiasis.
== END | disposition home or self-care (01) ==
LOC: RADUSWWP 13:44
PROVIDERS: ATTEND Internal Medicine
DX: N28.1 Cyst of kidney, acquired (principal); N18.30 Chronic kidney disease, stage 3 unspecified; Z90.5 Acquired absence of kidney
CPT/HCPCS: 76770